=== PATIENT | female | born 1985 | race Caucasian/White ===

== ENCOUNTER → 2019-11-07 13:38 | Outpatient (BNVA) | payer SELFPAY | PROVIDERS: Visit Provider Nurse Practitioner Family | DX: J02.9 Acute pharyngitis, unspecified (principal); J03.90 Acute tonsillitis, unspecified | CPT/HCPCS: 87071; 87880 ==

== ENCOUNTER 2021-05-22 16:46 | Emergency (ER) | payer SELFPAY ==
[2021-05-22 17:26] VITALS: BP 143/92; PULSE 102; RESP 16; TEMP 36.8; O2SAT 95; BMI 25.0
[2021-05-22 20:28] LABS: Basophils # 0.1 10^3/uL (0.0-0.1); Basophils % 0.5 %; Eosinophils # 0.1 10^3/uL (0.0-0.8); Eosinophils % 0.7 %; Hematocrit 38.9 % (37.0-47.0); Hemoglobin 13.7 g/dL (11.5-15.3); Lymphocytes # 2.2 10^3/uL (0.8-4.8); Lymphocytes % 18.4 %; Mean Corpuscular HGB Conc 35.2 g/dL (30.0-36.0); Mean Corpuscular Hemoglobin 33.7 pg (28.0-34.0); Mean Corpuscular Volume 95.6 fl (81-99); Mean Platelet Volume 10.4 fL (7.4-10.4); Monocytes # 0.8 10^3/uL (0.2-0.9); Monocytes % 6.3 %; Neutrophils # 8.87 10^3/uL (1.8-7.7); Neutrophils % 73.4 %; Nucleated Red Blood Cells % 0 %; Platelet Count 308 10^3/cmm (130-400); Red Blood Count 4.07 10^6/uL (4.1-5.3); Red Cell Distribution Width 11.9 % (12.1-15.1); White Blood Count 12.1 10^3/uL (4.0-10.0)
--- NOTE | 2021-05-22 20:35 | USR_ITS ---
PROCEDURE INFORMATION: Exam: US Nonobstetric Pelvis; Complete Exam date and time: 05/22/2021 8:35 PM Age: 35 years old Clinical indication: Abdominal pain and pelvic pain; Left lower quadrant; Prior surgery; Surgery date: 6+ months; Surgery type: Leep; Additional info: Left abd pain TECHNIQUE: Imaging protocol: Transabdominal pelvic nonobstetric ultrasound. Complete exam. Real time ultrasound with image documentation. COMPARISON: CT abdomen pelvis w con* [id number] 05/22/2021 9:04 PM FINDINGS: Uterus: Two possible uterine fibroids seen measuring up to 12 mm on the cross sectional views of the uterus, series 1 image 57. Right ovary/adnexa: Ovary is normal. No mass. Normal blood flow. Left ovary/adnexa: Ovary is normal. No mass. Normal blood flow. Intraperitoneal space: No intraperitoneal fluid. Urinary bladder: Normal. US/US pelvic with transvaginal IMPRESSION: Two possible uterine fibroids seen measuring up to 12 mm on the cross sectional views of the uterus, series 1 image 57. Ovaries appear within normal limits with color blood flow. Radiation Dose CTDIVOL = (mGy): DLP = (mGy-cm)
[2021-05-22 20:42] LABS: HCG, Serum Qual Negative (Negative)
--- NOTE | 2021-05-22 20:56 | CTR_ITS ---
PROCEDURE INFORMATION: Exam: CT Abdomen And Pelvis With Contrast Exam date and time: 05/22/2021 8:56 PM Age: 35 years old Clinical indication: Abdominal pain; Prior surgery; Surgery type: Iud; Patient HX: Left flank pain. ; Additional info: Rlq/flank pain, stone vs ovarian TECHNIQUE: Imaging protocol: Computed tomography of the abdomen and pelvis with contrast. Radiation optimization: All CT scans at this facility use at least one of these dose optimization techniques: automated exposure control; mA and/or kV adjustment per patient size (includes targeted exams where dose is matched to clinical indication); or iterative reconstruction. Contrast material: OMNI 300; Contrast volume: 95 ml; Contrast route: INTRAVENOUS (IV); COMPARISON: No relevant prior studies available. RADIATION DOSE METRICS: Total DLP (mGy-cm): 1246.7 FINDINGS: Liver: Hepatic steatosis. Gallbladder and bile ducts: Normal. No calcified stones. No ductal dilation. Pancreas: Normal. No ductal dilation. Spleen: Normal. No splenomegaly. Adrenal glands: Normal. No mass. Kidneys and ureters: Left distal ureter 5.8 mm calculus with mild hydronephrosis and hydroureter with some perinephric edema perhaps reflecting pyelonephritis. Bilateral nonobstructing renal calyceal stones. Stomach and bowel: Constipation. Appendix: No evidence of appendicitis. Intraperitoneal space: Unremarkable. No free air. No significant fluid collection. Vasculature: Unremarkable. No abdominal aortic aneurysm. Lymph nodes: Unremarkable. No enlarged lymph nodes. Urinary bladder: Unremarkable as visualized. Reproductive: IUD in the uterine cavity. Bones/joints: Unremarkable. No acute fracture. Soft tissues: Unremarkable. CT/CT abdomen pelvis w con* [id number] IMPRESSION: 1. Left distal ureter 5.8 mm calculus with mild hydronephrosis and hydroureter with some perinephric edema perhaps reflecting pyelonephritis. 2. Bilateral nonobstructing renal calyceal stones. 3. Constipation. 4. IUD in the uterine cavity. 5. Hepatic steatosis. Radiation Dose CTDIVOL = (mGy): DLP = 1246.7 (mGy-cm)
[2021-05-22 20:58] LABS: Alanine Aminotransferase 11 U/L (0-33); Albumin Level 4.3 g/dL (3.5-5.2); Alkaline Phosphatase 47 IU/L (35-105); Anion Gap 17.7 (5-19); Aspartate Amino Transferase 15 U/L (0-32); Blood Urea Nitrogen 9 mg/dL (6-20); Calcium 9.4 mg/dL (8.5-10.5); Carbon Dioxide 23 mmol/L (22-29); Chloride 103 mmol/L (98-107); Glomerular Filtration Rate 113.1 mL/min (90-130); Glucose 93 mg/dL (65-115); Osmolality Calculated 288 mOsm/kg (285-295); Potassium 3.7 mmol/L (3.5-5.1); Sodium 140 mmol/L (136-145); Total Bilirubin 0.2 mg/dL (0.15-1.2); Total Protein 7.3 g/dL (6.6-8.7)
[2021-05-22] MEDS: iohexol 300 mg/mL 100 mL Btl IV (21:08)
--- NOTE | 2021-05-22 21:10 | W.ED.ABDPA2 ---
HPI - Abdominal Pain General: Chief Complaint: Abdominal Pain Stated Complaint: Lower Abdominal Pain to back Time Seen by Provider: 05/22/21 20:32 History of Present Illness: HPI narrative: Patient is a 35-year-old female with no significant past medical history. She is here with complaints of flank and groin pain. States it became worse over the last 3 days. Started in her flank and moved to her groin. Is sharp aching waxes and wanes but is mostly there. She did not get any relief from a 10 mg hydrocodone last night but did get some with some ibuprofen this morning. She has had some blood in her urine as well as some spotting. She is due to start her period. She has a ParaGard IUD that she states she has been unable to feel. No recent trauma to her abdomen or pelvis. No fevers chills chest pain nausea vomiting diarrhea altered mental status or syncope. Review of Systems General: Reports: 10 or more systems reviewed and unremarkable except in HPI and below PFSH ED PFSH: Social History Smoking and tobacco status: current every day smoker Alcohol intake: never Physical Exam Const: COMMON NORMALS: no acute distress, average body habitus, patient oriented x3, no limitations, healthy appearing, alert and well nourished GENERAL APPEARANCE: cooperative; not comfortable HENMT: COMMON NORMALS: normocephalic and atraumatic HEAD & SCALP: normocephalic and atraumatic Resp: COMMON NORMALS: normal respiratory effort, No retractions and clear to auscultation bilaterally AUSCULTATION: clear to auscultation bilaterally Cardio: COMMON NORMALS: regular rate, regular rhythm and No murmurs present (Cardio) RATE: regular rate RHYTHM: regular rhythm GI: COMMON NORMALS: Normal to inspection, nondistended, normoactive bowel sounds present and Soft to palpation PALPATION: Yes Soft to palpation Extremity: COMMON NORMALS: normal to inspection, full ROM and no joint enlargement Neuro: COMMON NORMALS: patient oriented x3, CN's II-XII intact bilaterally, moves all extremities, no focal motor deficits and no sensory deficits noted SENSORIUM/ORIENTATION: Yes alert Psych: COMMON NORMALS: mental status grossly normal and Normal thought process present THOUGHT PROCESS: Normal thought process present Skin: COMMON NORMALS: no rashes or lesions noted GENERAL SKIN EXAM: no rashes or lesions noted Course ED course: Patient has a 5.8 mm nonobstructing stone on the left it seems to be the cause of her symptoms. Ultrasound not show any ovarian torsion or cyst. Good blood flow to the ovary and some small fibroids. Patient still does have some considerable pain. Did give her a dose of Toradol which seemed to help spoke to urologist project management consultant because the CT showed some signs of possible stranding do not see any other signs of infection on her other than a mildly elevated white count still waiting for her urine. We will give her dose of hydrocodone now wait for her urine to see if there is any concomitant infection to treat if we can get her pain under control will discharge her. Pain does not have patient does not have any signs of infection in her urine no leukoesterase or nitrites. Bacteria seems to be a contaminant send her home with medication follow-up with urology instructions on when to return. Assuming that her pain is better controlled with the hydrocodone that we will discharge her. Vital Signs: Vital signs: Vital Signs Temperature 98.2 F 05/22/21 17:26 Pulse Rate 102 H 05/22/21 17:26 Respiratory Rate 16 05/22/21 17:26 Blood Pressure 143/92 05/22/21 17:26 Pulse Oximetry 95 05/22/21 17:26 MDM - Abdominal Pain MDM Narrative: Medical decision making narrative: Differential includes ovarian torsion, ovarian cyst, kidney stone, infection. Other than mildly hypertensive vital signs are normal she is afebrile do not think there is anything infectious. Given the fact that she has had blood in her urine she is not sure whether she has been spotting or not would strongly suggest kidney stone. States she has had 1 in the past but feels differently. Ovarian torsion would think would be more spasmodic she will have blood in her urine. We will go to get a CT to look at her kidney. If not see any obvious pathology may still have to ultrasound her. Check basic labs on her as well as test. Toradol for pain control Lab Data: Labs: Lab Results 05/22/21 05/22/21 05/22/21 19:53 19:53 19:53 WBC 12.1 10^3/uL H 10 ^3/uL (4.0-10.0) RBC 4.07 10^6/uL L 10 ^6/uL (4.1-5.3) Hgb 13.7 g/dL g/dL (11.5-15.3) Hct 38.9 % % (37.0-47.0) MCV 95.6 fl fl (81-99) MCH 33.7 pg pg (28.0-34.0) MCHC 35.2 g/dL g/dL (30.0-36.0) RDW 11.9 % L % (12.1-15.1) Plt Count 308 10^3/cmm 10^3 /cmm (130-400) MPV 10.4 fL fL (7.4-10.4) Neut % (Auto) 73.4 % % Lymph % (Auto) 18.4 % % Brown % (Auto) 6.3 % % Eos % (Auto) 0.7 % % Baso % (Auto) 0.5 % % Neut # (Auto) 8.87 10^3/uL H 10 ^3/uL (1.8-7.7) Lymph # (Auto) 2.2 10^3/uL 10^3/ uL (0.8-4.8) Brown # (Auto) 0.8 10^3/uL 10^3/ uL (0.2-0.9) Eos # (Auto) 0.1 10^3/uL 10^3/ uL (0.0-0.8) Baso # (Auto) 0.1 10^3/uL 10^3/ uL (0.0-0.1) Nucleated RBC % (a uto) 0 % % Nucleated RBCs # 0.0 /100WBC /100W BC Sodium 140 mmol/L mmol/L (136-145) Potassium 3.7 mmol/L mmol/L (3.5-5.1) Chloride 103 mmol/L mmol/L (98-107) Carbon Dioxide 23 mmol/L mmol/L (22-29) Anion Gap 17.7 (5-19) BUN 9 mg/dL mg/dL (6-20) Creatinine 0.6 mg/dL mg/dL (0.5-0.9) GFR Calculation 113.1 mL/min mL/m in (90-130) Glucose 93 mg/dL mg/dL (65-115) Calculated Osmolal ity 288 mOsm/kg mOsm/ kg (285-295) Calcium 9.4 mg/dL mg/dL (8.5-10.5) Total Bilirubin 0.2 mg/dL mg/dL (0.15-1.2) AST 15 U/L U/L (0-32) ALT 11 U/L U/L (0-33) Alkaline Phosphata se 47 IU/L IU/L (35-105) Total Protein 7.3 g/dL g/dL (6.6-8.7) Albumin 4.3 g/dL g/dL (3.5-5.2) Globulin 3.0 g/dL g/dL (1.3-4.6) HCG, Qual Negative (Negative) Urine Color Urine Appearance Urine pH Ur Specific Gravit y Urine Protein Urine Glucose (UA) Urine Ketones Urine Blood Urine Nitrate Urine Bilirubin Urine Urobilinogen Ur Leukocyte Carla ase Urine RBC Urine WBC Ur Squamous Epith Cells Calcium Oxalate Cr ystal Amorphous Sediment Urine Bacteria 05/22/21 20:47 WBC RBC Hgb Hct MCV MCH MCHC RDW Plt Count MPV Neut % (Auto) Lymph % (Auto) Brown % (Auto) Eos % (Auto) Baso % (Auto) Neut # (Auto) Lymph # (Auto) Brown # (Auto) Eos # (Auto) Baso # (Auto) Nucleated RBC % (a uto) Nucleated RBCs # Sodium Potassium Chloride Carbon Dioxide Anion Gap BUN Creatinine GFR Calculation Glucose Calculated Osmolal ity Calcium Total Bilirubin AST ALT Alkaline Phosphata se Total Protein Albumin Globulin HCG, Qual Urine Color Yellow (Yellow) Urine Appearance Sl hazy (CLEAR) Urine pH 5 (5-7) Ur Specific Gravit y 1.025 (1.005-1.030) Urine Protein Trace (Negative) Urine Glucose (UA) Norm (Normal) Urine Ketones Negative (Negative) Urine Blood 3+ H (Negative) Urine Nitrate Negative (Negative) Urine Bilirubin Neg (Negative) Urine Urobilinogen Norm mg/dL mg/dL (Negative) Ur Leukocyte Carla ase Negative (Negative) Urine RBC >100 /hpf H /hpf (0-2) Urine WBC 5-10 /hpf H /hpf (0-5) Ur Squamous Epith Cells 25-40 /hpf H /hpf (0-5) Calcium Oxalate Cr ystal 0-4 /hpf H /hpf Amorphous Sediment Not Reportable Urine Bacteria 2+ /hpf H /hpf (NONE) Discharge Plan Discharge Patient Disposition: Home Clinical Impression: Calculus of kidney Condition: Stable Prescriptions: New hydrocodone-acetaminophen 7.5-325 mg tablet 1 tab PO Q6H Qty: 20 RF: 0 Zofran 4 mg tablet 4 mg PO Q8H 5 Days Qty: 15 RF: 0 Flomax 0.4 mg capsule 0.4 mg PO DAILY Qty: 3 RF: 0 Discharge Orders: Discharge ED (Routine); Ordered 05/22/21 Ordered By: Andrew Baxter Referrals: Nestor Scott MD [Physician] - 1-3 days (As needed if symptoms do not improve) Patient Instructions: Kidney Stones (ED), How to Strain Your Urine (ED) Activity Restrictions/Additional Instructions: Take medication as prescribed. Do not take any other Tylenol or medicines with opiates such as oxycodone or additional doses of hydrocodone. In the morning you may start taking naproxen 2 pills every 12 hours that should help her symptoms quite a bit. Use the hydrocodone as needed. Strain your urine to see if the stone passes. Return to the emergency department with pain not controlled with your home meds fever over 101.3 feeling very ill or unable to keep down food fluids or medicines or any change in altered mental status Coding Level of Care Code ED Commercial Maintenance Technician for Connie Woo Exam Comprehensive
[2021-05-22] MEDS: ketorolac 30 mg/mL INJ 15 MG IVP (21:27)
[2021-05-22 22:41] LABS: Add Urine Microscopic? YES; Bilirubin Urine Neg (Negative); Blood Urine 3+ (Negative); Glucose Urine UA Norm (Normal); Ketones Urine Negative (Negative); Leukocyte Esterase Urine Negative (Negative); Nitrate Urine Negative (Negative); Protein Urine Trace (Negative); Specific Gravity, Urine 1.025 (1.005-1.030); Urine Appearance SL Hazy (CLEAR); Urine Color Yellow (Yellow); Urobilinogen Urine Norm (Negative); pH Urine 5 (5-7)
[2021-05-22 22:46] LABS: Add Urine Culture? No; Bacteria Urine 2+ /hpf; Calcium Oxalate Crystals Urine 0-4 /hpf; RBC Urine >100 /hpf (0-2); Squamous Epithelial Cell Urine 25-40 /hpf (0-5)
[2021-05-22] MEDS: HYDROcodone-APAP 7.5-325 mg/15 mL UDC 7.5 ML PO (22:53)
[2021-05-22] MEDS: tamsulosin 0.4 mg Capsule PO (22:54)
[2021-05-22] MEDS: HYDROcodone-acetaminophen 7.5-325 mg Tablet 2 TAB PO (23:40)
[2021-05-22 23:56] VITALS: BP 127/105; PULSE 76; RESP 16; O2SAT 96
== END 2021-05-22 23:57 | disposition home or self-care (01) ==
PROVIDERS: Nurse Practitioner Family; Emergency Provider Family Medicine
DX: N20.0 Calculus of kidney (principal); F17.210 Nicotine dependence, cigarettes, uncomplicated
CPT/HCPCS: 74177; 76830; 76856; 80053; 81001; 84703; 85025; 93976; 96374; 99283; J1885; Q9967

== ENCOUNTER 2023-08-23 07:38 | Emergency (ER) | payer SELFPAY ==
[2023-08-23] VITALS (11 sets, daily range): BP systolic 113–130; BP diastolic 48–98; PULSE 86–100; RESP 16–18; TEMP 37.2; O2SAT 93–99; BMI 26.6
--- NOTE | 2023-08-23 07:44 | W.ED.NAVMDI ---
HPI - Nausea/Vomiting/Diarrhea General: Chief complaint: Nausea/Vomiting/Diarrhea Stated complaint: Resp Distress, Weakness Time Seen by Provider: 08/23/23 07:41 Source: patient Mode of arrival: EMS History of Present Illness: 38-year-old female presents emergency room via EMS with complaints of persistent nausea and vomiting with pain in her back and her left flank for the last 4 days. She has had a productive cough as well with some small spit flecks of blood in her sputum when she she attributes to sore throat symptoms. No dysuria urgency or frequency she is concerned with several of the [id number] medication she has taken that she precipitated a kidney stone in the last few days causing the left flank pain. She has had kidney stones in the past. She has noted a fever at home. She denies any dysuria urgency or frequency no hematemesis or coffee-ground emesis. She has not noted any diarrhea or black tarry stools or hematochezia. MD elicited complaint: nausea and vomiting Onset (ago): day(s) (4) Description of vomiting: food contents and watery Associated nausea: Yes Quality: cramping Exacerbating factors: none Relieving factors: none Associated symtoms: Reports chest pain and nausea; Denies anxiety, bloating, change in vision, cough, diaphoresis, decreased urine output, dizziness, dysuria, epistaxis, fatigue, fecal incontinence, fevers/chills, headache(s), anorexia, malaise, myalgias, numbness, palpitations, rash, short of breath, syncope, tenesmus, tinnitus or weakness Review of Systems Const: Denies: fever(s), chills, fatigue, malaise or diaphoresis Eyes: Denies: change in vision ENMT: Denies: tinnitus or epistaxis Card: Reports: chest pain; Denies: palpitations or syncope Resp: Reports: dyspnea and productive cough GI: Reports: abdominal pain, nausea and vomiting; Denies: bloating or fecal incontinence : Reports: flank pain (L); Denies: dysuria, urinary frequency or urinary urgency Musc: Reports: back pain; Denies: neck pain Skin/Breast: Denies: rash Neuro: Denies: headache(s) or dizziness Psych: Denies: anxiety PFSH ED PFSH: Social History (Reviewed 08/23/23 @ 07:45 by HIREN Weems Smoking and tobacco/nicotine status: current every day tobacco/nicotine user Alcohol intake: never Substance/Drug Use: current Physical Exam Const: GENERAL APPEARANCE: cooperative and comfortable ORIENTATION/CONSCIOUSNESS: Yes awake, Yes oriented to person, Yes oriented to place and Yes oriented to time HENMT: COMMON NORMALS: normocephalic, atraumatic and hearing grossly normal bilaterally HEAD & SCALP: normocephalic and atraumatic Resp: COMMON NORMALS: normal respiratory effort, No retractions, No use of accessory muscles and clear to auscultation bilaterally AUSCULTATION: clear to auscultation bilaterally Cardio: COMMON NORMALS: regular rate, regular rhythm and No murmurs present (Cardio) RATE: regular rate RHYTHM: regular rhythm GI: COMMON NORMALS: Soft to palpation and No hepatosplenomegaly present AUSCULTATION: Yes normoactive bowel sounds PALPATION: Yes Soft to palpation, No Tenderness to palpation present (GI), No Guarding due to palpation present (GI) and Yes No hepatosplenomegaly present Extremity: COMMON NORMALS: normal to inspection, capillary refill normal, no clubbing, cyanosis or edema, no calf tenderness and no pedal edema Neuro: SENSORIUM/ORIENTATION: Yes oriented to person, Yes oriented to place and Yes oriented to time Skin: COMMON NORMALS: no rashes or lesions noted GENERAL SKIN EXAM: no rashes or lesions noted Course Vital Signs: Vital signs: Vital Signs Temperature 99.0 F 08/23/23 07:39 Pulse Rate 89 08/23/23 12:26 Respiratory Rate 16 08/23/23 11:19 Blood Pressure 130/98 08/23/23 12:26 Pulse Oximetry 98 08/23/23 12:26 Oxygen Delivery Me thod Room Air 08/23/23 12:01 MDM - Nausea/Vomiting/Diarrhea Medical Decision Making Right nephrolithiasis. Pain controlled. Will discharge patient home on tamsulosin: Pain medications antiemetics as needed strain urine to make arrangements for follow-up with urology. Medical Records I reviewed the patient's medical records. Lab Data I reviewed the patient's lab results. 08/23/23 07:20 08/23/23 08:14 Radiology Impressions Chest X-Ray 08/23/23 07:50 IMPRESSION: No acute cardiopulmonary abnormality detected on AP portable chest radiograph. Laboratory Results WBC 6.22 10^3/uL (3.29-11.43) 08/23/23 07:20 RBC 5.27 10^6/uL (3.85-5.65) 08/23/23 07:20 Hgb 17.30 g/dL (11.27-16.99) H 08/23/23 07:20 Hct 50.0 % (36-47) H 08/23/23 07:20 MCV 94.9 fl (85-98) 08/23/23 07:20 MCH 32.8 pg (27-33) 08/23/23 07:20 MCHC 34.6 g/dL (30-55) 08/23/23 07:20 RDW 12.0 % (12.1-15.1) L 08/23/23 07:20 Plt Count 269 10^3/cmm (157-399) 08/23/23 07:20 MPV 11.5 fL (7.4-10.4) H 08/23/23 07:20 Neut % (Auto) 70.0 % 08/23/23 07:20 Lymph % (Auto) 21.7 % 08/23/23 07:20 Izard % (Auto) 7.2 % 08/23/23 07:20 Eos % (Auto) 0.0 % 08/23/23 07:20 Baso % (Auto) 0.6 % 08/23/23 07:20 Neut # (Auto) 4.35 10^3/uL (1.8-7.7) 08/23/23 07:20 Lymph # (Auto) 1.4 10^3/uL (0.8-4.8) 08/23/23 07:20 Izard # (Auto) 0.5 10^3/uL (0.2-0.9) 08/23/23 07:20 Eos # (Auto) 0.0 10^3/uL (0.0-0.8) 08/23/23 07:20 Baso # (Auto) 0.0 10^3/uL (0.0-0.1) 08/23/23 07:20 Nucleated RBC % (auto) 0 % 08/23/23 07:20 Nucleated RBCs # 0.0 /100WBC 08/23/23 07:20 Sodium 134 mmol/L (136-145) L 08/23/23 08:14 Potassium 3.1 mmol/L (3.5-5.1) L 08/23/23 08:14 Chloride 100 mmol/L (98-107) 08/23/23 08:14 Carbon Dioxide 20 mmol/L (22-29) L 08/23/23 08:14 Anion Gap 17.1 (5-19) 08/23/23 08:14 BUN 8 mg/dL (6-20) 08/23/23 08:14 Creatinine 0.6 mg/dL (0.5-0.9) 08/23/23 08:14 GFR Calculation 111.3 mL/min (90-130) 08/23/23 08:14 Glucose 127 mg/dL (65-115) H 08/23/23 08:14 Calculated Osmolality 278 mOsm/kg (285-295) L 08/23/23 08:14 Lactic Acid 1.2 mmol/L (0.5-2.2) 08/23/23 08:14 Calcium 9.3 mg/dL (8.5-10.5) 08/23/23 08:14 Total Bilirubin 0.3 mg/dL (0.15-1.2) 08/23/23 08:14 AST 23 U/L (0-32) 08/23/23 08:14 ALT 17 U/L (0-33) 08/23/23 08:14 Alkaline Phosphatase 58 U/L (35-105) 08/23/23 08:14 Total Protein 8.1 g/dL (6.6-8.7) 08/23/23 08:14 Albumin 4.2 g/dL (3.5-5.2) 08/23/23 08:14 Globulin 3.9 g/dL (1.3-4.6) 08/23/23 08:14 Lipase 20 U/L (13-60) 08/23/23 08:14 HCG, Qual Negative (Negative) 08/23/23 08:14 Urine Color Dark yellow (Yellow) 08/23/23 08:28 Urine Appearance Sl hazy (CLEAR) A 08/23/23 08:28 Urine pH 6 (5-7) 08/23/23 08:28 Ur Specific Grahn 1.020 (1.005-1.030) 08/23/23 08:28 Urine Protein 1+ (Negative) H 08/23/23 08:28 Urine Glucose (UA) Norm (Normal) 08/23/23 08:28 Urine Ketones 1+ (Negative) H 08/23/23 08:28 Urine Blood 2+ (Negative) H 08/23/23 08:28 Urine Nitrate Negative (Negative) 08/23/23 08:28 Urine Bilirubin Neg (Negative) 08/23/23 08:28 Urine Urobilinogen Norm mg/dL (Negative) 08/23/23 08:28 Ur Leukocyte Esterase 1+ (Negative) H 08/23/23 08:28 Urine RBC 10-15 /hpf (0-2) H 08/23/23 08:28 Urine WBC 0-4 /hpf (0-5) H 08/23/23 08:28 Ur Squamous Epith Cells 0-4 /hpf (0-5) H 08/23/23 08:28 Amorphous Sediment Not Reportable 08/23/23 08:28 Urine Bacteria Trace /hpf (NONE) 08/23/23 08:28 Urine Mucus 1+ /hpf 08/23/23 08:28 Coronavirus 229E (PCR) Not detected (NOT DETECT) 08/23/23 08:20 Influenza A (H1) PCR Not detected (NOT DETECT) 08/23/23 10:34 Influ A (H1/09) PCR Not detected (NOT DETECT) 08/23/23 10:34 Influenza A (H3) PCR Detected (NOT DETECT) A 08/23/23 10:34 Influenza Type A Ag positive (Negative) H 08/23/23 08:20 Influenza Type A (PCR) Detected (NOT DETECT) A 08/23/23 10:34 Influenza Type B Ag negative (Negative) 08/23/23 08:20 Influenza Type B (PCR) Not detected (NOT DETECT) 08/23/23 10:34 SARS-CoV-2 (PCR) Not detected (NOT DETECT) 08/23/23 08:20 All radiology interpretation(s) finalized by discharge Discharge Plan Discharge Patient Disposition: Home Clinical Impression: Left nephrolithiasis, Influenza A Condition: Stable Prescriptions: New Percocet 5-325 mg tablet 1 tab PO Q4H PRN (Reason: pain) Qty: 20 0RF tamsulosin 0.4 mg capsule 0.4 mg PO BID Qty: 30 0RF promethazine 25 mg tablet 25 mg PO Q6H PRN (Reason: nausea and vomiting) Qty: 20 0RF No Action hydrocodone-acetaminophen 7.5-325 mg tablet 1 tab PO Q6H Qty: 20 0RF Flomax 0.4 mg capsule 0.4 mg PO DAILY Qty: 3 0RF Discharge Orders: Discharge ED (Routine); Ordered 08/23/23 Ordered By: Tim Crockett Discharge Diet: Usual diet Discharge Activity: Increase activity as tolerated Patient Instructions: Opioid Safety, Pain Management Activity Restrictions/Additional Instructions: Thank you for choosing [facility] for your healthcare needs today. Please realize this is an emergency room and that we are providing you with a medical screening exam and this may not be complete and all inclusive of all the testing and or work up that you may need to determine your ailment or severity of your illness. It is very important that you follow up as instructed or that you return to the Emergency Department should you have concerns or if your condition changes or worsens in any way. You were seen today for respiratory symptoms and flank pain. You do have influenza A you are outside the window for antivirals recommend just supportive care at this time for the the flulike symptoms. Additionally you have a left kidney stone. Recommend follow-up with urology as soon as you are able if pain is not controlled return to the emergency room. Coding Level of Care Code ED Roaster Operator for Connie Woo
--- NOTE | 2023-08-23 07:50 | XRR_ITS ---
PROCEDURE INFORMATION: Exam: XR Chest Exam date and time: 08/23/2023 7:54 AM Age: 38 years old Clinical indication: Cough and dyspnea; Additional info: Dyspnea/cough TECHNIQUE: Imaging protocol: Radiologic exam of the chest. Views: 1 view. COMPARISON: CT abdomen pelvis w con* [id number] 05/22/2021 9:04 PM FINDINGS: Lungs: No focal consolidation. Pleural spaces: No significant pleural fluid. No pneumothorax detected. Heart/Mediastinum: Heart size within normal range. No pulmonary vascular congestion. Bones/joints: No obvious acute abnormality. XR/XR chest 1V portable [id number] IMPRESSION: No acute cardiopulmonary abnormality detected on AP portable chest radiograph.
--- NOTE | 2023-08-23 07:53 | ECG_ITS ---
[facility] Test Date: 2023-08-23 Pat Name: Domonique Walker Department: Room: Gender: Female Helpdesk Technician: : 1985 Requested By: Tim Ya Order Number: [id number] Osbaldo MD: Bakari Garg M.D. Measurements Intervals [place] Rate: 84 P: 11 ID: [id number] QRS: -14 QRSD: 100 T: 58 QT: 361 QTc: 429 Interpretive Statements SINUS RHYTHM No previous ECG available for comparison Electronically Signed On 08-23-2023 9:44:13 PNEUMATIC DEICER INSPECTOR by Bakari Garg M.D. [id number]
[2023-08-23 07:55] LABS: Basophils % 0.6 %; Lymphocytes # 1.4 10^3/uL (0.8-4.8); Lymphocytes % 21.7 %; Mean Corpuscular HGB Conc 34.6 g/dL (30-55); Mean Corpuscular Hemoglobin 32.8 pg (27-33); Mean Corpuscular Volume 94.9 fl (85-98); Mean Platelet Volume 11.5 fL (7.4-10.4); Monocytes # 0.5 10^3/uL (0.2-0.9); Monocytes % 7.2 %; Neutrophils # 4.35 10^3/uL (1.8-7.7); Nucleated Red Blood Cells % 0 %; Platelet Count 269 10^3/cmm (157-399); Red Blood Count 5.27 10^6/uL (3.85-5.65); White Blood Count 6.22 10^3/uL (3.29-11.43)
[2023-08-23] MEDS: sodium chloride 0.9% 1,000 ML 999 ML IV (08:02)
[2023-08-23 08:45] LABS: Lactic Sepsis W/Reflex 1.2 mmol/L (0.5-2.2)
[2023-08-23 08:47] LABS: Alanine Aminotransferase 17 U/L (0-33); Albumin Level 4.2 g/dL (3.5-5.2); Alkaline Phosphatase 58 U/L (35-105); Anion Gap 17.1 (5-19); Aspartate Amino Transferase 23 U/L (0-32); Blood Urea Nitrogen 8 mg/dL (6-20); Calcium 9.3 mg/dL (8.5-10.5); Carbon Dioxide 20 mmol/L (22-29); Chloride 100 mmol/L (98-107); Globulin 3.9 g/dL (1.3-4.6); Glomerular Filtration Rate 111.3 mL/min (90-130); Glucose 127 mg/dL (65-115); Lipase 20 U/L (13-60); Osmolality Calculated 278 mOsm/kg (285-295); Potassium 3.1 mmol/L (3.5-5.1); Sodium 134 mmol/L (136-145); Total Bilirubin 0.3 mg/dL (0.15-1.2); Total Protein 8.1 g/dL (6.6-8.7)
[2023-08-23 08:49] LABS: HCG, Serum Qual Negative (Negative)
[2023-08-23 08:51] LABS: Add Urine Microscopic? YES; Bilirubin Urine Neg (Negative); Blood Urine 2+ (Negative); Glucose Urine UA Norm (Normal); Ketones Urine 1+ (Negative); Leukocyte Esterase Urine 1+ (Negative); Nitrate Urine Negative (Negative); Protein Urine 1+ (Negative); Urine Appearance SL Hazy (CLEAR); Urine Color Dark Yellow (Yellow); Urobilinogen Urine Norm (Negative); pH Urine 6 (5-7)
[2023-08-23 09:01] LABS: Bacteria Urine TRACE /hpf; Mucus Urine 1+ /hpf; Squamous Epithelial Cell Urine 0-4 /hpf (0-5); WBC Urine 0-4 /hpf (0-5)
[2023-08-23 09:02] LABS: Add Urine Culture? Yes
[2023-08-23 09:02] LABS: Influenza A by IFA positive (Negative); Influenza B by IFA negative (Negative)
--- NOTE | 2023-08-23 09:06 | CT_ITS ---
WS: [id number] CT ABDOMEN PELVIS TECHNIQUE: Noncontrast CT of the abdomen and pelvis with coronal and sagittal reformatted images. CLINICAL INFORMATION: flank pain COMPARISON: CT 2020 DLP: 622.[address] scans at [facility] use at least one of these dose optimization techniques: automated e xposure control; mA and/or kV adjustment per patient size (includes targeted exams where dose is matc hed to clinical indication); or iterative reconstruction. FINDINGS: Advanced RIGHT hydronephrosis with RIGHT ureterectasis extending into the pelvis. Obstructing distal RIGHT ureteral calculus measuring 6.7 mm x 12.4 mm transverse by craniocaudal. No obstructing LEFT renal or ureteral calculi. A few pelvic phleboliths. No hydronephrosis in the LEF T kidney. Tiny nonobstructing LEFT calyceal tip calculi. IUD in place. Lung bases are well aerated. Normal noncontrast liver. Normal noncontrast gallbladder. Normal GE junction. Noncontrast spleen is normal. Adrenal glands are normal. Normal caliber abdominal aorta. Normal appendix in the RIGHT lower quadrant. Fat-containing umbilical hernia. IMPRESSION: 1. Advanced RIGHT hydronephrosis with obstructing distal RIGHT ureteral calculus proximal to the UVJ measuring 6.7 x 12.4 mm transverse by craniocaudal. 2. No obstructing LEFT renal or ureteral calculi. Notified Tim Crockett DO at 08/23/2023 10:04 AM.
[2023-08-23] MEDS: morphine 4 mg/mL SDV 1 mL IVP (09:57)
[2023-08-23 10:29] LABS: Adenovirus Not Detected (NOT DETECT); Chlamydia Pneumoniae Not Detected (NOT DETECT); Coronavirus 229E,HKU1,NL63,OC4 Not Detected (NOT DETECT); Human Metapneumovirus Not Detected (NOT DETECT); Human Rhinovirus/Enterovirus Not Detected (NOT DETECT); Influenza A Detected (NOT DETECT); Influenza A H1 Not Detected (NOT DETECT); Influenza A H1-2009 Not Detected (NOT DETECT); Influenza A H3 Detected (NOT DETECT); Influenza B Not Detected (NOT DETECT); Mycoplasma Pneumoniae Not Detected (NOT DETECT); Parainfluenza Virus Type 1 Not Detected (NOT DETECT); Parainfluenza Virus Type 2 Not Detected (NOT DETECT); Parainfluenza Virus Type 3 Not Detected (NOT DETECT); Parainfluenza Virus Type 4 Not Detected (NOT DETECT); Respiratory Syncytial Virus A Not Detected (NOT DETECT); Respiratory Syncytial Virus B Not Detected (NOT DETECT); SARS-COV-2 Not Detected (NOT DETECT)
[2023-08-23 10:35] LABS: Influenza A Detected (NOT DETECT); Influenza A H1 Not Detected (NOT DETECT); Influenza A H1-2009 Not Detected (NOT DETECT); Influenza A H3 Detected (NOT DETECT); Influenza B Not Detected (NOT DETECT); Results from Genmark
[2023-08-23] MEDS: HYDROmorphone 1 mg/mL INJ 1 mL IVP (11:10)
--- NOTE | 2023-08-26 11:03 | DCPLANNER ---
I attempted to call patient on 08/25/23 at 0846am with no answer at phone number [phone]. I am trying to find out where patient would like urology referral for left ureterolithiasis. Options for urology is [facility] in [facility], [place], [facility] in [place], or [facility] in [place]. I will not send referral anywhere until I receive a call back from patient to see where she would like referral sent.
--- NOTE | 2023-08-26 11:05 | DCPLANNER ---
I attempted to call patient again on 08/26/23 at 1106am. I called phone number [phone]. Still no answer and I did leave a voicemail. I am needing to find out where patient would like urology referral sent.
== END 2023-08-23 12:29 | disposition home or self-care (01) ==
PROVIDERS: Emergency Provider Family Medicine
DX: N20.0 Calculus of kidney (principal); J10.1 Influenza due to other identified influenza virus with other respiratory manifestations; Z11.52 Encounter for screening for COVID-19; Z72.0 Tobacco use
CPT/HCPCS: 36415; 71045; 74176; 80053; 81001; 83605; 83690; 84703; 85025; 87086; 87631; 87635; 87804; 93005; 96374; 96375; 99285; J1170; J2270; J7030

== ENCOUNTER 2023-09-02 03:36 | Emergency (ER) | payer SELFPAY ==
[2023-09-02] VITALS (12 sets, daily range): BP systolic 101–145; BP diastolic 66–93; PULSE 67–97; RESP 16–18; TEMP 36.3–36.8; O2SAT 92–95; BMI 26.2
--- NOTE | 2023-09-02 04:12 | W.ED.ABDPA2 ---
Documented by User: Lowell Dodge DO 09/02/23 04:16 HPI - Abdominal Pain General: Chief Complaint: Abdominal Pain Stated Complaint: right flank pain Time Seen by Provider: 09/02/23 04:06 History of Present Illness: Presents to the ER with complaints of right-sided flank pain and radiating down to her groin. Patient does have a long history of kidney stones. Patient was just seen here approximately week ago for kidney stones. She says that there was one her left side and she may have passed them but now this is on her right side. Patient denies any fever or chills but does states she has nausea vomiting with the pain hits. The pain is sharp and stabbing in nature. Patient says she has been taking her pain medicine and nausea medicine as directed but is not enough to help. She says she does have an appointment coming up with urologist but not for another month. Upon chart review on 08/23/2023 CT scan showed advanced right sided hydronephrosis with approximately 6.7 x 12.4 mm stone obstructing her distal right ureter, there were no stones seen on the left side Related Data: Date of Last Menstrual Period: 08/12/23 Review of Systems General: Reports: 10 or more systems reviewed and unremarkable except in HPI and below PFSH ED PFSH: Social History Smoking and tobacco/nicotine status: current every day tobacco/nicotine user Alcohol intake: never Substance/Drug Use: current Female Reproductive History: Date of last menstrual period: 08/12/23 Physical Exam Const: COMMON NORMALS: no acute distress, average body habitus, patient oriented x3, no limitations, healthy appearing, alert and well nourished Neck/C-Spine: COMMON NORMALS: no JVD Chest: COMMONS NORMALS: normal inspection of the chest and normal palpation of entire chest wall Resp: COMMON NORMALS: normal respiratory effort, No retractions, No use of accessory muscles and clear to auscultation bilaterally AUSCULTATION: clear to auscultation bilaterally Cardio: COMMON NORMALS: no JVD, regular rate, regular rhythm, S1 normal heart sound present, S2 normal heart sound present, No gallops present (Cardio), No clicks present (Cardio), No murmurs present (Cardio) and No rub (Cardio) RATE: regular rate RHYTHM: regular rhythm HEART SOUNDS: S1 normal heart sound present and S2 normal heart sound present GI: COMMON NORMALS: Normal to inspection, nondistended, normoactive bowel sounds present, Soft to palpation and No hepatosplenomegaly present; negative for non-tender (Tender with palpation over right lower flank right lower quadrant abdomen) PALPATION: Yes Soft to palpation and Yes No hepatosplenomegaly present Neuro: COMMON NORMALS: patient oriented x3 SENSORIUM/ORIENTATION: Yes alert Course Vital Signs: Vital signs: Vital Signs Temperature 97.4 F L 09/02/23 03:57 Pulse Rate 85 09/02/23 07:20 Respiratory Rate 16 09/02/23 07:20 Blood Pressure 120/76 09/02/23 07:20 Pulse Oximetry 93 09/02/23 07:20 Oxygen Delivery Me thod Room Air 09/02/23 07:20 MDM - Abdominal Pain Differential Diagnosis Likely abdominal pain and calculus of kidney; Unlikely acute appendicitis, constipation, diverticulitis, endometriosis, gastroenteritis, pancreatitis or small bowel obstruction Medical Records I reviewed the patient's medical records. Lab Data I reviewed the patient's lab results. 09/02/23 04:10 09/02/23 04:10 Labs/Radiology: Radiology Impressions Abdomen/Pelvis CT 09/02/23 04:45 IMPRESSION: There has been no significant change. The distal right ureteral calculus with marked proximal obstructive changes are unchanged in appearance. Laboratory Results WBC 11.42 10^3/uL (3.29-11.43) 09/02/23 04:10 RBC 4.59 10^6/uL (3.85-5.65) 09/02/23 04:10 Hgb 14.80 g/dL (11.27-16.99) 09/02/23 04:10 Hct 42.1 % (36-47) 09/02/23 04:10 MCV 91.7 fl (85-98) 09/02/23 04:10 MCH 32.2 pg (27-33) 09/02/23 04:10 MCHC 35.2 g/dL (30-55) 09/02/23 04:10 RDW 11.8 % (12.1-15.1) L 09/02/23 04:10 Plt Count 314 10^3/cmm (157-399) 09/02/23 04:10 MPV 10.0 fL (7.4-10.4) 09/02/23 04:10 Neut % (Auto) 81.3 % 09/02/23 04:10 Lymph % (Auto) 12.6 % 09/02/23 04:10 [place] % (Auto) 5.3 % 09/02/23 04:10 Eos % (Auto) 0.2 % 09/02/23 04:10 Baso % (Auto) 0.3 % 09/02/23 04:10 Neut # (Auto) 9.29 10^3/uL (1.8-7.7) H 09/02/23 04:10 Lymph # (Auto) 1.4 10^3/uL (0.8-4.8) 09/02/23 04:10 [place] # (Auto) 0.6 10^3/uL (0.2-0.9) 09/02/23 04:10 Eos # (Auto) 0.0 10^3/uL (0.0-0.8) 09/02/23 04:10 Baso # (Auto) 0.0 10^3/uL (0.0-0.1) 09/02/23 04:10 Nucleated RBC % (auto) 0 % 09/02/23 04:10 Nucleated RBCs # 0.0 /100WBC 09/02/23 04:10 Sodium 134 mmol/L (136-145) L 09/02/23 04:10 Potassium 3.9 mmol/L (3.5-5.1) 09/02/23 04:10 Chloride 100 mmol/L (98-107) 09/02/23 04:10 Carbon Dioxide 19 mmol/L (22-29) L 09/02/23 04:10 Anion Gap 18.9 (5-19) 09/02/23 04:10 BUN 10 mg/dL (6-20) 09/02/23 04:10 Creatinine 0.9 mg/dL (0.5-0.9) 09/02/23 04:10 GFR Calculation 69.7 mL/min (90-130) L 09/02/23 04:10 Glucose 131 mg/dL (65-115) H 09/02/23 04:10 Calculated Osmolality 279 mOsm/kg (285-295) L 09/02/23 04:10 Calcium 8.9 mg/dL (8.5-10.5) 09/02/23 04:10 Total Bilirubin 0.5 mg/dL (0.15-1.2) 09/02/23 04:10 AST 22 U/L (0-32) 09/02/23 04:10 ALT 23 U/L (0-33) 09/02/23 04:10 Alkaline Phosphatase 52 U/L (35-105) 09/02/23 04:10 Total Protein 7.8 g/dL (6.6-8.7) 09/02/23 04:10 Albumin 4.2 g/dL (3.5-5.2) 09/02/23 04:10 Globulin 3.6 g/dL (1.3-4.6) 09/02/23 04:10 Urine Color Yellow (Yellow) 09/02/23 04:54 Urine Appearance Clear (CLEAR) 09/02/23 04:54 Urine pH 6 (5-7) 09/02/23 04:54 Ur Specific [place] 1.020 (1.005-1.030) 09/02/23 04:54 Urine Protein Neg (Negative) 09/02/23 04:54 Urine Glucose (UA) Norm (Normal) 09/02/23 04:54 Urine Ketones Negative (Negative) 09/02/23 04:54 Urine Blood Trace (Negative) H 09/02/23 04:54 Urine Nitrate Negative (Negative) 09/02/23 04:54 Urine Bilirubin Neg (Negative) 09/02/23 04:54 Urine Urobilinogen Neg mg/dL (Negative) 09/02/23 04:54 Ur Leukocyte Esterase Negative (Negative) 09/02/23 04:54 Urine RBC 0-4 /hpf (0-2) H 09/02/23 04:54 Urine WBC 0-4 /hpf (0-5) H 09/02/23 04:54 Ur Squamous Epith Cells 10-15 /hpf (0-5) H 09/02/23 04:54 Amorphous Sediment Not Reportable 09/02/23 04:54 Urine Bacteria Trace /hpf (NONE) 09/02/23 04:54 Discharge Plan Discharge Patient Disposition: Xfer Short-Term Hosp Clinical Impression: Calculus of kidney, Ureteral obstruction, right Condition: Stable Prescriptions: No Action tamsulosin 0.4 mg capsule 0.4 mg PO BID Qty: 30 0RF promethazine 25 mg tablet 25 mg PO Q6H PRN (Reason: nausea and vomiting) Qty: 20 0RF Sign Out Sign Out Data: Patient Sign Out occurred on 09/02/23 at 06:08. Patient's care was discussed, and care was transferred from Lowell Dodge DO to Tim Crockett DO. Coding Level of Care Code ED Buckle Frame Shaper for Chg Fwd Documented by User: Tim Crockett DO 09/02/23 08:17 HPI - Abdominal Pain General: Chief Complaint: Abdominal Pain Stated Complaint: right flank pain Time Seen by Provider: 09/02/23 04:06 PFSH ED PFSH: Social History Smoking and tobacco/nicotine status: current every day tobacco/nicotine user Alcohol intake: never Substance/Drug Use: current Course Vital Signs: Vital signs: Vital Signs Temperature 97.4 F L 09/02/23 03:57 Pulse Rate 85 09/02/23 07:20 Respiratory Rate 16 09/02/23 07:20 Blood Pressure 120/76 09/02/23 07:20 Pulse Oximetry 93 09/02/23 07:20 Oxygen Delivery Me thod Room Air 09/02/23 07:20 MDM - Abdominal Pain Medical Decision Making Care assumed at change of shift. 38-year-old female with obstructing ureteral stone that we seen 10 days ago since then she had no improvement as stone has a little worsening of her creatinine and has persistent hydronephrosis. Stone is quite large pain is more difficult to control today. Will transfer to [facility] in [place] for urologic services Drs. Chinchilla will be the attending on transfer. Lab Data 09/02/23 04:10 09/02/23 04:10 Labs/Radiology: Radiology Impressions Abdomen/Pelvis CT 09/02/23 04:45 IMPRESSION: There has been no significant change. The distal right ureteral calculus with marked proximal obstructive changes are unchanged in appearance. Laboratory Results WBC 11.42 10^3/uL (3.29-11.43) 09/02/23 04:10 RBC 4.59 10^6/uL (3.85-5.65) 09/02/23 04:10 Hgb 14.80 g/dL (11.27-16.99) 09/02/23 04:10 Hct 42.1 % (36-47) 09/02/23 04:10 MCV 91.7 fl (85-98) 09/02/23 04:10 MCH 32.2 pg (27-33) 09/02/23 04:10 MCHC 35.2 g/dL (30-55) 09/02/23 04:10 RDW 11.8 % (12.1-15.1) L 09/02/23 04:10 Plt Count 314 10^3/cmm (157-399) 09/02/23 04:10 MPV 10.0 fL (7.4-10.4) 09/02/23 04:10 Neut % (Auto) 81.3 % 09/02/23 04:10 Lymph % (Auto) 12.6 % 09/02/23 04:10 [place] % (Auto) 5.3 % 09/02/23 04:10 Eos % (Auto) 0.2 % 09/02/23 04:10 Baso % (Auto) 0.3 % 09/02/23 04:10 Neut # (Auto) 9.29 10^3/uL (1.8-7.7) H 09/02/23 04:10 Lymph # (Auto) 1.4 10^3/uL (0.8-4.8) 09/02/23 04:10 [place] # (Auto) 0.6 10^3/uL (0.2-0.9) 09/02/23 04:10 Eos # (Auto) 0.0 10^3/uL (0.0-0.8) 09/02/23 04:10 Baso # (Auto) 0.0 10^3/uL (0.0-0.1) 09/02/23 04:10 Nucleated RBC % (auto) 0 % 09/02/23 04:10 Nucleated RBCs # 0.0 /100WBC 09/02/23 04:10 Sodium 134 mmol/L (136-145) L 09/02/23 04:10 Potassium 3.9 mmol/L (3.5-5.1) 09/02/23 04:10 Chloride 100 mmol/L (98-107) 09/02/23 04:10 Carbon Dioxide 19 mmol/L (22-29) L 09/02/23 04:10 Anion Gap 18.9 (5-19) 09/02/23 04:10 BUN 10 mg/dL (6-20) 09/02/23 04:10 Creatinine 0.9 mg/dL (0.5-0.9) 09/02/23 04:10 GFR Calculation 69.7 mL/min (90-130) L 09/02/23 04:10 Glucose 131 mg/dL (65-115) H 09/02/23 04:10 Calculated Osmolality 279 mOsm/kg (285-295) L 09/02/23 04:10 Calcium 8.9 mg/dL (8.5-10.5) 09/02/23 04:10 Total Bilirubin 0.5 mg/dL (0.15-1.2) 09/02/23 04:10 AST 22 U/L (0-32) 09/02/23 04:10 ALT 23 U/L (0-33) 09/02/23 04:10 Alkaline Phosphatase 52 U/L (35-105) 09/02/23 04:10 Total Protein 7.8 g/dL (6.6-8.7) 09/02/23 04:10 Albumin 4.2 g/dL (3.5-5.2) 09/02/23 04:10 Globulin 3.6 g/dL (1.3-4.6) 09/02/23 04:10 Urine Color Yellow (Yellow) 09/02/23 04:54 Urine Appearance Clear (CLEAR) 09/02/23 04:54 Urine pH 6 (5-7) 09/02/23 04:54 Ur Specific [place] 1.020 (1.005-1.030) 09/02/23 04:54 Urine Protein Neg (Negative) 09/02/23 04:54 Urine Glucose (UA) Norm (Normal) 09/02/23 04:54 Urine Ketones Negative (Negative) 09/02/23 04:54 Urine Blood Trace (Negative) H 09/02/23 04:54 Urine Nitrate Negative (Negative) 09/02/23 04:54 Urine Bilirubin Neg (Negative) 09/02/23 04:54 Urine Urobilinogen Neg mg/dL (Negative) 09/02/23 04:54 Ur Leukocyte Esterase Negative (Negative) 09/02/23 04:54 Urine RBC 0-4 /hpf (0-2) H 09/02/23 04:54 Urine WBC 0-4 /hpf (0-5) H 09/02/23 04:54 Ur Squamous Epith Cells 10-15 /hpf (0-5) H 09/02/23 04:54 Amorphous Sediment Not Reportable 09/02/23 04:54 Urine Bacteria Trace /hpf (NONE) 09/02/23 04:54 All radiology interpretation(s) finalized by discharge Discharge Plan Discharge Patient Disposition: Xfer Short-Term Hosp Clinical Impression: Calculus of kidney, Ureteral obstruction, right Condition: Stable Prescriptions: No Action tamsulosin 0.4 mg capsule 0.4 mg PO BID Qty: 30 0RF promethazine 25 mg tablet 25 mg PO Q6H PRN (Reason: nausea and vomiting) Qty: 20 0RF Sign Out Sign Out Data: Patient Sign Out occurred on 09/02/23 at 06:08. Patient's care was discussed, and care was transferred from Lowell Dodge DO to Tim Crockett DO. Coding Level of Care Code ED Buckle Frame Shaper for Connie Woo
[2023-09-02 04:18] LABS: Basophils % 0.3 %; Eosinophils % 0.2 %; Hematocrit 42.1 % (36-47); Lymphocytes # 1.4 10^3/uL (0.8-4.8); Lymphocytes % 12.6 %; Mean Corpuscular HGB Conc 35.2 g/dL (30-55); Mean Corpuscular Hemoglobin 32.2 pg (27-33); Mean Corpuscular Volume 91.7 fl (85-98); Monocytes # 0.6 10^3/uL (0.2-0.9); Monocytes % 5.3 %; Neutrophils # 9.29 10^3/uL (1.8-7.7); Neutrophils % 81.3 %; Nucleated Red Blood Cells % 0 %; Platelet Count 314 10^3/cmm (157-399); Red Blood Count 4.59 10^6/uL (3.85-5.65); Red Cell Distribution Width 11.8 % (12.1-15.1); White Blood Count 11.42 10^3/uL (3.29-11.43)
[2023-09-02] MEDS: sodium chloride 0.9% 1,000 ML 999 ML IV (04:19)
[2023-09-02] MEDS: ondansetron 2 mg/ML SDV 2 mL 4 MG IVP (04:20)
[2023-09-02] MEDS: orphenadrine 30 mg/mL Inj 2 mL 60 MG IVP (04:20)
[2023-09-02] MEDS: ketorolac 30 mg/mL INJ IVP (04:20)
[2023-09-02 04:38] LABS: Alanine Aminotransferase 23 U/L (0-33); Albumin Level 4.2 g/dL (3.5-5.2); Alkaline Phosphatase 52 U/L (35-105); Anion Gap 18.9 (5-19); Aspartate Amino Transferase 22 U/L (0-32); Blood Urea Nitrogen 10 mg/dL (6-20); Calcium 8.9 mg/dL (8.5-10.5); Carbon Dioxide 19 mmol/L (22-29); Chloride 100 mmol/L (98-107); Creatinine Clr Calc Pharmacy 83.2893; Globulin 3.6 g/dL (1.3-4.6); Glomerular Filtration Rate 69.7 mL/min (90-130); Glucose 131 mg/dL (65-115); Osmolality Calculated 279 mOsm/kg (285-295); Potassium 3.9 mmol/L (3.5-5.1); Sodium 134 mmol/L (136-145); Total Bilirubin 0.5 mg/dL (0.15-1.2); Total Protein 7.8 g/dL (6.6-8.7)
--- NOTE | 2023-09-02 04:45 | CTR_ITS ---
PROCEDURE INFORMATION: Exam: CT Abdomen And Pelvis Without Contrast Exam date and time: 09/02/2023 4:56 AM Age: 38 years old Clinical indication: Abdominal pain; Flank; Patient HX: Patient says she was in last week and had the flu and a stone-she passed the stone Tuesday but now has pain on the right side; Additional info: Right ureteral stone, TECHNIQUE: Imaging protocol: Computed tomography of the abdomen and pelvis without contrast. Radiation optimization: All CT scans at this facility use at least one of these dose optimization techniques: automated exposure control; mA and/or kV adjustment per patient size (includes targeted exams where dose is matched to clinical indication); or iterative reconstruction. COMPARISON: CT kidney stone [id number] 08/23/2023 9:11 AM RADIATION DOSE METRICS: Total DLP (mGy-cm): 709 FINDINGS: Liver: Normal. No mass. Gallbladder and bile ducts: Normal. No calcified stones. No ductal dilation. Pancreas: Normal. No ductal dilation. Spleen: Normal. No splenomegaly. Adrenal glands: Normal. No mass. Kidneys and ureters: 7 x 12 mm distal right ureteral calculus with marked proximal ureteropelvocaliectasis is stable. Additional nonobstructing left renal calculi are stable. Stomach and bowel: Unremarkable. No obstruction. No mucosal thickening. Appendix: No evidence of appendicitis. Intraperitoneal space: Unremarkable. No free air. No significant fluid collection. Vasculature: Unremarkable. No abdominal aortic aneurysm. Lymph nodes: Unremarkable. No enlarged lymph nodes. Urinary bladder: Unremarkable as visualized. Reproductive: IUD within the endometrial cavity. Bones/joints: Unremarkable. No acute fracture. Soft tissues: Unremarkable. CT/CT kidney stone [id number] IMPRESSION: There has been no significant change. The distal right ureteral calculus with marked proximal obstructive changes are unchanged in appearance.
[2023-09-02] MEDS: HYDROmorphone 1 mg/mL INJ 1 mL 0.5 MG IVP ×2 (04:49→07:18)
[2023-09-02 05:06] LABS: Add Urine Culture? No; Add Urine Microscopic? YES; Bacteria Urine TRACE /hpf; Bilirubin Urine Neg (Negative); Blood Urine Trace (Negative); Glucose Urine UA Norm (Normal); Ketones Urine Negative (Negative); Leukocyte Esterase Urine Negative (Negative); Nitrate Urine Negative (Negative); Protein Urine Neg (Negative); RBC Urine 0-4 /hpf (0-2); Urine Appearance Clear (CLEAR); Urine Color Yellow (Yellow); Urobilinogen Urine Neg (Negative); WBC Urine 0-4 /hpf (0-5); pH Urine 6 (5-7)
[2023-09-02] MEDS: sodium chlor 0.9% + KCl 20 mEq 20 MEQ/1,000 ML BAG 125 MEQ IV (08:56)
[2023-09-02] MEDS: HYDROmorphone 1 mg/mL INJ 1 mL IVP (09:49)
== END 2023-09-02 13:00 | disposition short-term general hospital (02) ==
PROVIDERS: Emergency Medicine; Emergency Provider Family Medicine
DX: N20.1 Calculus of ureter (principal); Z72.0 Tobacco use
CPT/HCPCS: 74176; 80053; 81001; 85025; 96374; 96375; 96376; 99285; J1170; J1885; J2360; J2405; J3480; J7030

== ENCOUNTER 2024-02-13 03:01 | Emergency (ER) | payer SELFPAY ==
[2024-02-13] VITALS (19 sets, daily range): BP systolic 118–155; BP diastolic 75–104; PULSE 59–95; RESP 14–18; TEMP 36.7; O2SAT 92–98; BMI 28.6
[2024-02-13 03:20] LABS: Basophils # 0.1 10^3/uL (0.0-0.1); Basophils % 0.5 %; Eosinophils # 0.1 10^3/uL (0.0-0.8); Eosinophils % 0.6 %; Hematocrit 42.6 % (36-47); Lymphocytes % 18.4 %; Mean Corpuscular Hemoglobin 32.1 pg (27-33); Mean Corpuscular Volume 91.8 fl (85-98); Mean Platelet Volume 9.7 fL (7.4-10.4); Monocytes # 0.5 10^3/uL (0.2-0.9); Monocytes % 4.7 %; Neutrophils # 8.05 10^3/uL (1.8-7.7); Neutrophils % 75.3 %; Nucleated Red Blood Cells % 0 %; Platelet Count 330 10^3/cmm (157-399); Red Blood Count 4.64 10^6/uL (3.85-5.65); Red Cell Distribution Width 11.9 % (12.1-15.1); White Blood Count 10.68 10^3/uL (3.29-11.43)
[2024-02-13 03:26] LABS: Charge for UA Resulting for Rev
[2024-02-13 03:29] LABS: Bilirubin Urine Negative (Negative); Blood Urine Non-haemolysed trace (Negative); Glucose Urine UA Negative (Normal); Ketones Urine Negative (Negative); Leukocyte Esterase Urine Negative (Negative); Nitrate Urine Negative (Negative); Protein Urine Negative (Negative); Specific Gravity, Urine 1.029 (1.005-1.030); Urine Appearance Clear (CLEAR); Urine Color Yellow (Yellow); pH Urine 5.5 (5-7)
[2024-02-13 03:34] LABS: Bacteria Urine None Seen /hpf; Hyaline Casts Urine 0-4 /lpf; Squamous Epithelial Cell Urine 0-5 /hpf (0-5)
[2024-02-13 03:37] LABS: HCG, Serum Qual Negative (Negative)
[2024-02-13 03:41] LABS: Alanine Aminotransferase 9 U/L (0-33); Albumin Level 4.3 g/dL (3.5-5.2); Alkaline Phosphatase 64 U/L (35-105); Anion Gap 17.7 (5-19); Aspartate Amino Transferase 12 U/L (0-32); Blood Urea Nitrogen 8 mg/dL (6-20); C Reactive Protein 3.7 mg/L (0.0-4.9); Calcium 9.1 mg/dL (8.5-10.5); Carbon Dioxide 20 mmol/L (22-29); Chloride 104 mmol/L (98-107); Creatinine Clr Calc Pharmacy 97.4863; Globulin 3.6 g/dL (1.3-4.6); Glomerular Filtration Rate 79.9 mL/min (90-130); Glucose 112 mg/dL (65-115); Lipase 28 U/L (13-60); Osmolality Calculated 285 mOsm/kg (285-295); Potassium 3.7 mmol/L (3.5-5.1); Sodium 138 mmol/L (136-145); Total Bilirubin 0.2 mg/dL (0.15-1.2); Total Protein 7.9 g/dL (6.6-8.7)
--- NOTE | 2024-02-13 03:49 | CTR_ITS ---
PROCEDURE INFORMATION: Exam: CT Abdomen And Pelvis Without Contrast Exam date and time: 02/13/2024 4:13 AM Age: 38 years old Clinical indication: Abdominal pain; Right; Prior surgery; Surgery date: 6+ months; Surgery type: Iud; Patient HX: C/O RT flank pain x 3 days. History of non passable RT sided nephrolithiasis. ; Additional info: R flank pain TECHNIQUE: Imaging protocol: Computed tomography of the abdomen and pelvis without contrast. Radiation optimization: All CT scans at this facility use at least one of these dose optimization techniques: automated exposure control; mA and/or kV adjustment per patient size (includes targeted exams where dose is matched to clinical indication); or iterative reconstruction. COMPARISON: CT kidney stone [id number] 09/02/2023 4:56 AM RADIATION DOSE METRICS: Total DLP (mGy-cm): 646.62 FINDINGS: Lungs: Lung bases are clear as visualized. Liver: Normal. No mass. Gallbladder and biliary ducts: Normal. No calcified stones. No ductal dilation. Pancreas: Normal. No ductal dilation. Spleen: Normal. No splenomegaly. Adrenal glands: Normal. No mass. Kidneys and ureters: Small nonobstructing renal calculi are noted on the left. No hydronephrosis is noted on the left. There is severe hydronephrosis with hydroureter on the right extending to the distal right ureter. No definite stone is appreciated. Stomach and bowel: Unremarkable. No obstruction. No mucosal thickening. Appendix: No evidence of appendicitis. Intraperitoneal space: Unremarkable. No free air. No significant fluid collection. Vasculature: Unremarkable. No abdominal aortic aneurysm. Lymph nodes: Unremarkable. No enlarged lymph nodes. Urinary bladder: Unremarkable as visualized. Reproductive: There is an IUD within the uterus. No abnormalities are otherwise noted with regards to the reproductive organs. Bones/joints: Unremarkable. No acute fracture. Soft tissues: There is a small fat filled periumbilical hernia. CT/CT kidney stone [id number] IMPRESSION: 1. Severe hydronephrosis and hydroureter on the right worse on today's exam when compared to prior exam. No definite ureteral stone is appreciated. Findings may be related to a stricture or a mass involving the distal ureter. Recommend urologic referral for further appropriate workup. 2. Nephrolithiasis on the left.
--- NOTE | 2024-02-13 03:51 | ED_ITS ---
HPI - Abdominal Pain 2 General: Chief Complaint: Abdominal Pain Stated Complaint: Lower abd pain Time Seen by Provider: 02/13/24 03:20 History of Present Illness: 38-year-old female with a history of kid akhil stones. She presents with 3 days of right-sided flank pain, worse last night and this morning. She vomited once at home. No fever. She had been on her period, Related Data Home Medications Medication Instructions Recorded Confirmed No Known Home Medications 01/21/24 01/21/24 Allergies Allergy/AdvReac Type Severity Reaction Status Date / Time capsaicin Allergy ALINA-Swell Verified 01/21/24 11:28 Lip/Tongue/Throat PFSH ED 2 PFSH: Social History Smoking and tobacco/nicotine status: current every day tobacco/nicotine user (vape) Alcohol intake: never Substance/Drug Use: current Physical Exam 2 Const: COMMON NORMALS: no acute distress GENERAL APPEARANCE: cooperative and ill appearing (Mildly. In pain); not frail appearing HENMT: COMMON NORMALS: normocephalic, atraumatic and Normal external nose present HEAD & SCALP: normocephalic and atraumatic FACE & SINUS: normal facial exam and face symmetric NOSE: Normal external nose present Eye: COMMON NORMALS: Equal, round and reactive pupils present and EOMs intact bilaterally PUPIL: Yes Equal, round and reactive pupils present Neck/C-Spine: GENERAL: Yes trachea midline Chest: CHEST: Yes Symmetrical chest wall rise Resp: COMMON NORMALS: normal respiratory effort, No retractions, No use of accessory muscles and clear to auscultation bilaterally AUSCULTATION: clear to auscultation bilaterally Cardio: COMMON NORMALS: regular rate and regular rhythm RATE: regular rate RHYTHM: regular rhythm GI: COMMON NORMALS: Normal to inspection, nondistended, normoactive bowel sounds present : BLADDER/KIDNEY EXAM: Yes CVA tenderness on the right Back/Pelvis: GENERAL BACK: Yes CVA tenderness Extremity: COMMON NORMALS: no pedal edema Neuro: MATTY COMA SCALE: document GCS findings Matty coma scale eye opening: Spontaneous Matty coma scale verbal response: Orientated [place] coma scale motor response: Obey commands [place] coma scale total score: 15 S ENSORY EXAM: Yes extremities (intact) Psych: COMMON NORMALS: speech normal SPEECH: Yes normal speech Skin: COMMON NORMALS: no rashes or lesions noted GENERAL SKIN EXAM: no rashes or lesions noted Course 2 Vital Signs: Vital signs: Vital Signs Temperature 98.1 F 02/13/24 03:04 Pulse Rate 89 02/13/24 03:17 Respiratory Rate 16 02/13/24 04:23 Blood Pressure 135/92 02/13/24 03:17 Pulse Oximetry 97 02/13/24 03:17 Oxygen Delivery Me thod Room Air 02/13/24 03:17 MDM - Abdominal Pain Medical Decision Making Vital signs are stable. Pain is improved after IV morphine and Toradol here, although she still having significant pain. CBC is normal. Bicarbonate is 20. Creatinine is 0.8. CT scan shows severe hydronephrosis and hydroureter, up to 19 mm ureter, with no definite ureteral stone. Stricture or mass is in the differential. She had prior treatment at [facility]. We do not have urology services available here. We have clouded images to them, and have a call out to their urologist on-call to inquire about potential transfer given the severity of her hydronephrosis. Spoke with urology on-call at [facility]. They agree to consult on the patient. We are waiting hospitalist acceptance which is essentially assured given her need for urology intervention and they are agreement. Currently patient is stable. Lab Data 02/13/24 03:13 02/13/24 03:13 Labs/Radiology: Radiology Impressions Abdomen/Pelvis CT 02/13/24 03:49 IMPRESSION: 1. Severe hydronephrosis and hydroureter on the right worse on today's exam when compared to prior exam. No definite ureteral stone is appreciated. Findings may be related to a stricture or a mass involving the distal ureter. Recommend urologic referral for further appropriate workup. 2. Nephrolithiasis on the left. Laboratory Results WBC 10.68 10^3/uL (3.29-11.43) 02/13/24 03:13 RBC 4.64 10^6/uL (3.85-5.65) 02/13/24 03:13 Hgb 14.90 g/dL (11.27-16.99) 02/13/24 03:13 Hct 42.6 % (36-47) 02/13/24 03:13 MCV 91.8 fl (85-98) 02/13/24 03:13 MCH 32.1 pg (27-33) 02/13/24 03:13 MCHC 35.0 g/dL (30-55) 02/13/24 03:13 RDW 11.9 % (12.1-15.1) L 02/13/24 03:13 Plt Count 330 10^3/cmm (157-399) 02/13/24 03:13 MPV 9.7 fL (7.4-10.4) 02/13/24 03:13 Neut % (Auto) 75.3 % 02/13/24 03:13 Lymph % (Auto) 18.4 % 02/13/24 03:13 [place] % (Auto) 4.7 % 02/13/24 03:13 Eos % (Auto) 0.6 % 02/13/24 03:13 Baso % (Auto) 0.5 % 02/13/24 03:13 Neut # (Auto) 8.05 10^3/uL (1.8-7.7) H 02/13/24 03:13 Lymph # (Auto) 2.0 10^3/uL (0.8-4.8) 02/13/24 03:13 [place] # (Auto) 0.5 10^3/uL (0.2-0.9) 02/13/24 03:13 Eos # (Auto) 0.1 10^3/uL (0.0-0.8) 02/13/24 03:13 Baso # (Auto) 0.1 10^3/uL (0.0-0.1) 02/13/24 03:13 Nucleated RBC % (auto) 0 % 02/13/24 03:13 Nucleated RBCs # 0.0 /100WBC 02/13/24 03:13 Sodium 138 mmol/L (136-145) 02/13/24 03:13 Potassium 3.7 mmol/L (3.5-5.1) 02/13/24 03:13 Chloride 104 mmol/L (98-107) 02/13/24 03:13 Carbon Dioxide 20 mmol/L (22-29) L 02/13/24 03:13 Anion Gap 17.7 (5-19) 02/13/24 03:13 BUN 8 mg/dL (6-20) 02/13/24 03:13 Creatinine 0.8 mg/dL (0.5-0.9) 02/13/24 03:13 GFR Calculation 79.9 mL/min (90-130) L 02/13/24 03:13 Glucose 112 mg/dL (65-115) 02/13/24 03:13 Calculated Osmolality 285 mOsm/kg (285-295) 02/13/24 03:13 Calcium 9.1 mg/dL (8.5-10.5) 02/13/24 03:13 Total Bilirubin 0.2 mg/dL (0.15-1.2) 02/13/24 03:13 AST 12 U/L (0-32) 02/13/24 03:13 ALT 9 U/L (0-33) 02/13/24 03:13 Alkaline Phosphatase 64 U/L (35-105) 02/13/24 03:13 C-Reactive Protein 3.7 mg/L (0.0-4.9) 02/13/24 03:13 Total Protein 7.9 g/dL (6.6-8.7) 02/13/24 03:13 Albumin 4.3 g/dL (3.5-5.2) 02/13/24 03:13 Globulin 3.6 g/dL (1.3-4.6) 02/13/24 03:13 Lipase 28 U/L (13-60) 02/13/24 03:13 HCG, Qual Negative (Negative) 02/13/24 03:13 Urine Color Yellow (Yellow) 02/13/24 03:13 Urine Appearance Clear (CLEAR) 02/13/24 03:13 Urine pH 5.5 (5-7) 02/13/24 03:13 Ur Specific [place] 1.029 (1.005-1.030) 02/13/24 03:13 Urine Protein Negative (Negative) 02/13/24 03:13 Urine Glucose (UA) Negative (Normal) 02/13/24 03:13 Urine Ketones Negative (Negative) 02/13/24 03:13 Urine Blood Non-haemolysed trace (Negative) 02/13/24 03:13 Urine Nitrate Negative (Negative) 02/13/24 03:13 Urine Bilirubin Negative (Negative) 02/13/24 03:13 Urine Urobilinogen 1.0 mg/dL (Negative) 02/13/24 03:13 Ur Leukocyte Esterase Negative (Negative) 02/13/24 03:13 Urine RBC 3-5 /hpf (0-2) 02/13/24 03:13 Urine WBC 6-10 /hpf (0-5) 02/13/24 03:13 Ur Squamous Epith Cells 0-5 /hpf (0-5) 02/13/24 03:13 Amorphous Sediment Not Reportable 02/13/24 03:13 Urine Bacteria None seen /hpf (NONE) 02/13/24 03:13 Hyaline Casts 0-4 /lpf H 02/13/24 03:13 All radiology interpretation(s) finalized by discharge Discharge Plan Discharge Patient Disposition: Xfer Short-Term Hosp Clinical Impression: Ureterolithiasis Condition: Stable Coding Level of Care Code ED [employer] Plant Manager for Connie Woo
[2024-02-13] MEDS: ondansetron 2 mg/ML SDV 2 mL 4 MG IVP ×2 (04:19→17:50)
[2024-02-13] MEDS: ketorolac 30 mg/mL INJ IVP (04:19)
[2024-02-13] MEDS: sodium chloride 0.9% 1,000 ML 999 ML IV (04:20)
[2024-02-13] MEDS: morphine 4 mg/mL SDV 1 mL IVP ×5 (04:23→17:50)
[2024-02-13] MEDS: lactated ringers 1,000 ML 100 ML IV ×2 (07:05→14:51)
[2024-02-13] MEDS: HYDROmorphone 1 mg/mL INJ 1 mL IVP (22:09)
== END 2024-02-13 22:34 | disposition short-term general hospital (02) ==
PROVIDERS: Emergency Medicine; Emergency Provider Family Medicine
DX: N13.2 Hydronephrosis with renal and ureteral calculous obstruction (principal); F17.290 Nicotine dependence, other tobacco product, uncomplicated
CPT/HCPCS: 74176; 80053; 81003; 81015; 83690; 84703; 85025; 86140; 96361; 96374; 96375; 96376; 99285; J1170; J1885; J2270; J2405; J7030; J7120

== ENCOUNTER 2024-02-29 04:20 | Emergency (ER) | payer OTHER, SELFPAY ==
[2024-02-29 04:26] VITALS: BP 146/76; PULSE 101; RESP 18; TEMP 36.6; O2SAT 93; BMI 27.9
[2024-02-29] MEDS: ondansetron 4 MG Tablet PO (04:55)
[2024-02-29 05:01] VITALS: RESP 18
[2024-02-29] MEDS: morphine 4 mg/mL SDV 1 mL 10 MG IM (05:01)
[2024-02-29 05:12] LABS: Charge for UA Resulting for Rev
[2024-02-29 05:15] LABS: Bilirubin Urine Negative (Negative); Blood Urine 3+ (Negative); Glucose Urine UA Negative (Normal); Ketones Urine Negative (Negative); Leukocyte Esterase Urine 1+ (Negative); Nitrate Urine Negative (Negative); Protein Urine 2+ (Negative); Specific Gravity, Urine 1.017 (1.005-1.030); Urine Appearance Cloudy (CLEAR)
[2024-02-29 05:20] LABS: Bacteria Urine None Seen /hpf; RBC Urine >100 /hpf (0-2); Squamous Epithelial Cell Urine 0-5 /hpf (0-5)
--- NOTE | 2024-02-29 05:20 | W.ED.FEMALGU ---
HPI - Female Genitourinary General: Chief complaint: Urogenital-Female Stated complaint: abd pain Time Seen by Provider: 02/29/24 04:31 History of Present Illness: This patient is a 38-year-old white female who presents to the emergency department complaining of right flank pain rating down the right lower quadrant. This became severe this morning. Patient has been having pain on this side for some time. She recently had a stent placed in the right ureter by Dr. Girard at [facility]. She is having quite a bit of burning with urination as well. No fever. Associated symptoms: Reports abdominal pain Date of Last Menstrual Period: 02/15/24 Related Data Home Medications Medication Instructions Recorded Confirmed hydrocodone 5 mg-acetaminophen 325 1 tab PO Q6H PRN 02/20/24 02/20/24 mg tablet tamsulosin 0.4 mg capsule 0.4 mg PO DAILY 02/20/24 02/20/24 Previous Rx's Medication Instructions Recorded oxycodone-acetaminophen 5 mg-325 1 tab PO Q6H PRN pain #30 tabs 02/29/24 mg tablet (Percocet) Allergies Allergy/AdvReac Type Severity Reaction Status Date / Time capsaicin Allergy ALGY-Swell Verified 02/29/24 04:32 Lip/Tongue/Throat Review of Systems GI: Reports: abdominal pain : Reports: flank pain PFSH ED PFSH: Social History Smoking and tobacco/nicotine status: current every day tobacco/nicotine user (vape) Alcohol intake: never Substance/Drug Use: current Female Reproductive History: Date of last menstrual period: 02/15/24 Physical Exam Const: COMMON NORMALS: patient oriented x3 and no limitations GENERAL APPEARANCE: cooperative HENMT: COMMON NORMALS: normocephalic, atraumatic, Normal nasal mucous membranes and turbinates present, moist oral mucous membranes and oropharynx normal HEAD & SCALP: normal to inspection, normocephalic and atraumatic FACE & SINUS: normal facial exam NOSE: Normal nasal mucous membranes and turbinates present Eye: COMMON NORMALS: Equal, round and reactive pupils present, EOMs intact bilaterally and conjunctivae normal GENERAL EYE: appearance normal, both eyes and all related structures CONJUNCTIVA: Yes conjunctivae normal PUPIL: Yes Equal, round and reactive pupils present Neck/C-Spine: COMMON NORMALS: supple and no JVD Chest: COMMONS NORMALS: normal inspection of the chest Resp: COMMON NORMALS: normal respiratory effort and clear to auscultation bilaterally AUSCULTATION: clear to auscultation bilaterally Cardio: COMMON NORMALS: no JVD, regular rate, regular rhythm, No gallops present (Cardio), No murmurs present (Cardio) and No rub (Cardio) RATE: regular rate RHYTHM: regular rhythm GI: COMMON NORMALS: Normal to inspection, nondistended, normoactive bowel sounds present and Soft to palpation AUSCULTATION: Yes normoactive bowel sounds PALPATION: Yes Soft to palpation, Yes Tenderness to palpation present (GI) Details: RLQ, No Guarding due to palpation present (GI) and No Rebound tenderness present : OTHER: Right CVA tenderness. Back/Pelvis: COMMON NORMALS: thoracic and lumbar spine normal to inspection Extremity: COMMON NORMALS: normal to inspection Neuro: COMMON NORMALS: patient oriented x3 and CN's II-XII intact bilaterally Psych: COMMON NORMALS: mental status grossly normal, Normal thought process present and cooperative THOUGHT PROCESS: Normal thought process present Skin: COMMON NORMALS: no rashes or lesions noted, turgor normal and no jaundice GENERAL SKIN EXAM: no rashes or lesions noted and turgor normal Course Vital Signs: Vital signs: Vital Signs Temperature 97.8 F 02/29/24 04:26 Pulse Rate 79 02/29/24 05:40 Respiratory Rate 18 02/29/24 05:01 Blood Pressure 125/53 02/29/24 05:40 Pulse Oximetry 96 02/29/24 05:40 Oxygen Delivery Me thod Room Air 02/29/24 04:26 [facility] - Female Medical Decision Making Patient was given 10 mg of morphine IM and 4 mg of Zofran p.o. for her discomfort. Urinalysis revealed no bacteria. Many red blood cells. Patient is feeling significantly better after the injection of morphine. She was discharged in stable condition with a prescription for Percocet. Recommended she contact her urologist. Lab Data Laboratory Results Urine Color Red (Yellow) A 02/29/24 05:08 Urine Appearance Cloudy (CLEAR) A 02/29/24 05:08 Urine pH 6.0 (5-7) 02/29/24 05:08 Ur Specific [place] 1.017 (1.005-1.030) 02/29/24 05:08 Urine Protein 2+ (Negative) A 02/29/24 05:08 Urine Glucose (UA) Negative (Normal) 02/29/24 05:08 Urine Ketones Negative (Negative) 02/29/24 05:08 Urine Blood 3+ (Negative) A 02/29/24 05:08 Urine Nitrate Negative (Negative) 02/29/24 05:08 Urine Bilirubin Negative (Negative) 02/29/24 05:08 Urine Urobilinogen 1.0 mg/dL (Negative) 02/29/24 05:08 Ur Leukocyte Esterase 1+ (Negative) A 02/29/24 05:08 Urine RBC >100 /hpf (0-2) H 02/29/24 05:08 Urine WBC 6-10 /hpf (0-5) 02/29/24 05:08 Ur Squamous Epith Cells 0-5 /hpf (0-5) 02/29/24 05:08 Amorphous Sediment Not Reportable 02/29/24 05:08 Urine Bacteria None seen /hpf (NONE) 02/29/24 05:08 Hyaline Casts 0.40 /lpf 02/29/24 05:08 No radiology studies performed this visit Discharge Plan Discharge Patient Disposition: Home Clinical Impression: Renal colic on right side Condition: Stable Prescriptions: New Percocet 5-325 mg tablet 1 tab PO Q6H PRN (Reason: pain) Qty: 30 0RF No Action hydrocodone-acetaminophen 5-325 mg tablet 1 tab PO Q6H PRN tamsulosin 0.4 mg capsule 0.4 mg PO DAILY Discharge Orders: Discharge ED (Routine); Ordered 02/29/24 Ordered By: Kelvin Maurer Patient Instructions: Opioid Safety, Pain Management Coding Level of Care Code ED Ticketing Agent for Connie Woo
[2024-02-29 05:37] LABS: Add Urine Culture? Yes; Urine Color Red (Yellow)
[2024-02-29 05:40] VITALS: BP 125/53; PULSE 79; O2SAT 96
[2024-02-29 06:03] VITALS: BP 120/64; PULSE 90; O2SAT 97
== END 2024-02-29 06:05 | disposition home or self-care (01) ==
PROVIDERS: Emergency Provider Emergency Medicine
DX: N23 Unspecified renal colic (principal); F17.290 Nicotine dependence, other tobacco product, uncomplicated
CPT/HCPCS: 81003; 81015; 87086; 96372; 99284; J2270; Q0162

== ENCOUNTER 2024-03-12 07:00 | Emergency (ER) | payer OTHER, SELFPAY ==
[2024-03-12] VITALS (20 sets, daily range): BP systolic 102–153; BP diastolic 70–93; PULSE 57–99; RESP 16–18; TEMP 36.6–37; O2SAT 94–100; BMI 28.1
--- NOTE | 2024-03-12 07:14 | CT_ITS ---
WS: [id number] CT ABDOMEN AND PELVIS NONCONTRAST HISTORY: flank pain TECHNIQUE: Imaging performed through the abdomen and pelvis. Coronal and sagittal reformats are submi tted. All CT scans at [facility] use at least one of these dose optimization techniques: auto mated exposure control; mA and/or kV adjustment per patient size (includes targeted exams where dose is matched to clinical indication); or iterative reconstruction. DLP: 589.13 mGy.cm COMPARISON: 02/13/2024 Lower thorax: Lung bases are clear. Visualized heart is normal. No hiatal hernia. Liver: Mild hepatic steatosis. Gallbladder: Normal gallbladder. No pericholecystic fluid or cholelithiasis. No gallbladder wall thic kening. Pancreas: Normal size and attenuation. Normal pancreatic duct. No pancreatitis or mass. Spleen: Normal. Adrenal glands: Normal. No mass. Right kidney: Since the prior examination of 02/13/2024 double-pigtail RIGHT ureteral stent has been p laced. Proximal pigtail is coiled in the renal pelvis. The hydronephrosis has resolved. Significant s oft tissue inflammatory changes and prominence at the renal pelvis and surrounding the proximal urete r. Essentially there is nearly diffuse ureteral wall thickening but greatest proximally. No residual stones are identified. Left kidney: Normal size. A few nonobstructing calcifications. Aorta: Mild atherosclerosis abdominal aorta with no aneurysm. No free fluid, intraperitoneal air or significant lymphadenopathy. GI tract: Normal noncontrast imaging of the stomach, small bowel and colon. No obstruction or wall th ickening. Normal appendix. Abdominal wall: Small umbilical hernia contains fat only. Pelvis: IUD appears to be in good position. Distal RIGHT ureteral stent pigtail coiled in the nondist ended bladder. Osseous structures: Unremarkable. CT/CT kidney stone [id number] IMPRESSION: 1. Since the prior examination of 02/13/2024 double-pigtail RIGHT ureteral sten t has been placed. 2. RIGHT hydronephrosis has resolved. 3. Additional new significant soft tissue infiltration noted near the RIGHT re nal pelvis and encasing the proximal ureter. The ureter is thickened and irregu lar for most of its course but greatest proximally. This is a new finding. Pote ntially this could represent an injury related to the ureteral stent placement or infection. Stent does appear to be in a good position as the hydronephrosis has resolved. 4. Nonobstructing LEFT renal calcifications. 5. Normal appendix.
[2024-03-12 07:28] LABS: Basophils % 0.6 %; Eosinophils # 0.1 10^3/uL (0.0-0.8); Eosinophils % 1.5 %; Hematocrit 40.5 % (36-47); Lymphocytes # 1.9 10^3/uL (0.8-4.8); Lymphocytes % 29.1 %; Mean Corpuscular HGB Conc 35.1 g/dL (30-55); Mean Corpuscular Hemoglobin 32.2 pg (27-33); Mean Corpuscular Volume 91.8 fl (85-98); Monocytes # 0.4 10^3/uL (0.2-0.9); Monocytes % 5.9 %; Neutrophils # 4.04 10^3/uL (1.8-7.7); Neutrophils % 62.6 %; Nucleated Red Blood Cells % 0 %; Platelet Count 310 10^3/cmm (157-399); Red Blood Count 4.41 10^6/uL (3.85-5.65); Red Cell Distribution Width 12.5 % (12.1-15.1); White Blood Count 6.46 10^3/uL (3.29-11.43)
--- NOTE | 2024-03-12 07:31 | ED_ITS ---
HPI - Back Pain/Injury 2 General: Chief Complaint: Back Pain/Injury Stated Complaint: Kidney problems Time Seen by Provider: 03/12/24 07:13 History of Present Illness: 38 -year-old female presents emergency r oom complaining of right flank pain. Patient has ureteral stenosis and had a stent placed on February 10 she states that since then she has had sharp pain on the right flank extending down to the groin with hematuria. It has been very intense entire time she is treated with hydrocodone at home as well as oxycodone at this point it is because so much pain has become unbearable for her injury presents emergency room she denies any fever sweats or chills has had dysuria with hematuria. She is not currently on any antibiotics. Associated symptoms: Reports dysuria and hematuria; Deny abdominal pain, chills, fever(s) or urinary urgency Related Data Home Medications Medication Instructions Recorded Confirmed No Known Home Medications 03/12/24 03/12/24 Allergies Allergy/AdvReac Type Severity Reaction Status Date / Time capsaicin Allergy ALGY-Swell Verified 02/29/24 04:32 Lip/Tongue/Throat Review of Systems 2 Const: Denies: fever(s) or chills Card: Denies: chest pain Resp: Denies: dyspnea GI: Denies: abdominal pain : Reports: flank pain (Right), dysuria and hematuria; Denies: urinary frequency or urinary urgency Musc: Denies: neck pain or back pain Skin/Breast: Denies: rash PFSH ED 2 PFSH: Social History Smoking and tobacco/nicotine status: current every day tobacco/nicotine user (vape) Alcohol intake: never Substance/Drug Use: current Physical Exam 2 Const: GENERAL APPEARANCE: cooperative ORIENTATION/CONSCIOUSNESS: Yes awake, Yes oriented to person, Yes oriented to place and Yes oriented to time HENMT: COMMON NORMALS: normocephalic, atraumatic and hearing grossly normal bilaterally HEAD & SCALP: normocephalic and atraumatic Resp: COMMON NORMALS: normal respiratory effort, No retractions, No use of accessory muscles and clear to auscultation bilaterally AUSCULTATION: clear to auscultation bilaterally Cardio: COMMON NORMALS: regular rate, regular rhythm and No murmurs present (Cardio) RATE: regular rate RHYTHM: regular rhythm GI: COMMON NORMALS: Soft to palpation and No hepatosplenomegaly present A USCULTATION: Yes normoactive bowel sounds PALPATION: Yes Soft to palpation, No Tenderness to palpation present (GI), No Guarding due to palpation present (GI) and Yes No hepatosplenomegaly present : BLADDER/KIDNEY EXAM: Yes CVA tenderness (Bilateral much more intense on the right than the left) Back/Pelvis: GENERAL BACK: Yes CVA tenderness (Bilateral much more intense on the right than the left) Extremity: COMMON NORMALS: normal to inspection, capillary refill normal, no clubbing, cyanosis or edema, no calf tenderness and no pedal edema Neuro: SENSORIUM/ORIENTATION: Yes oriented to person, Yes oriented to place and Yes oriented to time Skin: COMMON NORMALS: no rashes or lesions noted GENERAL SKIN EXAM: no rashes or lesions noted Course 2 Vital Signs: Vital signs: Vital Signs Temperature 98.6 F 03/12/24 07:18 Pulse Rate 67 03/12/24 23:58 Respiratory Rate 16 03/12/24 23:58 Blood Pressure 102/70 03/12/24 23:58 Pulse Oximetry 94 03/12/24 23:58 Oxygen Delivery Me thod Room Air 03/12/24 22:47 Oxygen Flow Rate 2 03/12/24 18:42 MDM - Back Pain/Injury Medical Decision Making Patient has a stent in place there is still hydronephrosis patient is severe pain. This been ongoing since she had the stent placed she is also having significant hematuria. No leukocytosis. CT renal protocol shows right hydronephrosis resolved but there is significant soft tissue infiltration in the right renal pelvis encasing the proximal ureter. Thickened irregular there is concern that this may be a focus of infection. Radiology also eventually read the complication of placement of stent however the hydronephrosis has completely resolved from previous film. Renal function is good. Patient started on Vanco and Zosyn. Her white count and hemoglobin are in normal ranges. Discussed with urology at [place] will transfer. The patient did remain in the department for extended period of time while we are waiting for a bed become available at [facility]. Eventually to the bed did become available and patient was transferred via [facility]. Labs 03/12/24 07:22 03/12/24 07:22 Radiology Impressions Abdomen/Pelvis CT 03/12/24 07:14 IMPRESSION: 1. Since the prior examination of 02/13/2024 double-pigtail RIGHT ureteral stent has been placed. 2. RIGHT hydronephrosis has resolved. 3. Additional new significant soft tissue infiltration noted near the RIGHT renal pelvis and encasing the proximal ureter. The ureter is thickened and irregular for most of its course but greatest proximally. This is a new finding. Potentially this could represent an injury related to the ureteral stent placement or infection. Stent does appear to be in a good position as the hydronephrosis has resolved. 4. Nonobstructing LEFT renal calcifications. 5. Normal appendix. Laboratory Results WBC 6.46 10^3/uL (3.29-11.43) 03/12/24 07:22 RBC 4.41 10^6/uL (3.85-5.65) 03/12/24 07:22 Hgb 14.20 g/dL (11.27-16.99) 03/12/24 07:22 Hct 40.5 % (36-47) 03/12/24 07:22 MCV 91.8 fl (85-98) 03/12/24 07:22 MCH 32.2 pg (27-33) 03/12/24 07:22 MCHC 35.1 g/dL (30-55) 03/12/24 07:22 RDW 12.5 % (12.1-15.1) 03/12/24 07:22 Plt Count 310 10^3/cmm (157-399) 03/12/24 07:22 MPV 10.0 fL (7.4-10.4) 03/12/24 07:22 Neut % (Auto) 62.6 % 03/12/24 07:22 Lymph % (Auto) 29.1 % 03/12/24 07:22 [place] % (Auto) 5.9 % 03/12/24 07:22 Eos % (Auto) 1.5 % 03/12/24 07:22 Baso % (Auto) 0.6 % 03/12/24 07:22 Neut # (Auto) 4.04 10^3/uL (1.8-7.7) 03/12/24 07:22 Lymph # (Auto) 1.9 10^3/uL (0.8-4.8) 03/12/24 07:22 [place] # (Auto) 0.4 10^3/uL (0.2-0.9) 03/12/24 07:22 Eos # (Auto) 0.1 10^3/uL (0.0-0.8) 03/12/24 07:22 Baso # (Auto) 0.0 10^3/uL (0.0-0.1) 03/12/24 07:22 Nucleated RBC % (auto) 0 % 03/12/24 07:22 Nucleated RBCs # 0.0 /100WBC 03/12/24 07:22 Sodium 139 mmol/L (136-145) 03/12/24 07:22 Potassium 3.8 mmol/L (3.5-5.1) 03/12/24 07:22 Chloride 107 mmol/L (98-107) 03/12/24 07:22 Carbon Dioxide 20 mmol/L (22-29) L 03/12/24 07:22 Anion Gap 15.8 (5-19) 03/12/24 07:22 BUN 8 mg/dL (6-20) 03/12/24 07:22 Creatinine 0.6 mg/dL (0.5-0.9) 03/12/24 07:22 GFR Calculation 111.3 mL/min (90-130) 03/12/24 07:22 Glucose 103 mg/dL (65-115) 03/12/24 07:22 Calculated Osmolality 287 mOsm/kg (285-295) 03/12/24 07:22 Lactic Acid 1.7 mmol/L (0.5-2.2) 03/12/24 08:00 Calcium 9.0 mg/dL (8.5-10.5) 03/12/24 07:22 Total Bilirubin 0.2 mg/dL (0.15-1.2) 03/12/24 07:22 AST 13 U/L (0-32) 03/12/24 07:22 ALT 9 U/L (0-33) 03/12/24 07:22 Alkaline Phosphatase 58 U/L (35-105) 03/12/24 07:22 Total Protein 7.7 g/dL (6.6-8.7) 03/12/24 07:22 Albumin 4.4 g/dL (3.5-5.2) 03/12/24 07:22 Globulin 3.3 g/dL (1.3-4.6) 03/12/24 07:22 HCG, Qual Negative (Negative) 03/12/24 08:01 Urine Color Red (Yellow) A 03/12/24 11:34 Urine Appearance Cloudy (CLEAR) A 03/12/24 11:34 Urine pH TNP 03/12/24 11:34 Ur Specific [place] TNP 03/12/24 11:34 Urine Protein TNP 03/12/24 11:34 Urine Glucose (UA) TNP 03/12/24 11:34 Urine Ketones TNP 03/12/24 11:34 Urine Blood TNP 03/12/24 11:34 Urine Nitrate TNP 03/12/24 11:34 Urine Bilirubin TNP 03/12/24 11:34 Urine Urobilinogen TNP 03/12/24 11:34 Ur Leukocyte Esterase TNP 03/12/24 11:34 Urine RBC Too numerous to cnt /hpf (0-2) H 03/12/24 11:34 Urine WBC 15-25 /hpf (0-5) H 03/12/24 11:34 Ur Squamous Epith Cells 5-10 /hpf (0-5) H 03/12/24 11:34 Calcium Oxalate Crystal 40-55 /hpf H 03/12/24 11:34 Amorphous Sediment Not Reportable 03/12/24 11:34 Urine Bacteria 2+ /hpf (NONE) H 03/12/24 11:34 All radiology interpretation(s) finalized by discharge Discharge Plan Discharge Patient Disposition: Xfer Short-Term Hosp Clinical Impression: Stenosis of right ureter, Mechanical complication of ureteral stent Condition: Stable Coding Level of Care Code ED Track Hoe Operator for Connie Woo
[2024-03-12] MEDS: ketorolac 30 mg/mL INJ IVP (07:39)
[2024-03-12] MEDS: ondansetron 2 mg/ML SDV 2 mL 4 MG IVP ×2 (07:39→20:27)
[2024-03-12] MEDS: morphine 4 mg/mL SDV 1 mL IVP (07:40)
[2024-03-12 07:45] LABS: Alanine Aminotransferase 9 U/L (0-33); Albumin Level 4.4 g/dL (3.5-5.2); Alkaline Phosphatase 58 U/L (35-105); Anion Gap 15.8 (5-19); Aspartate Amino Transferase 13 U/L (0-32); Blood Urea Nitrogen 8 mg/dL (6-20); Carbon Dioxide 20 mmol/L (22-29); Chloride 107 mmol/L (98-107); Creatinine Clr Calc Pharmacy 128.8998; Globulin 3.3 g/dL (1.3-4.6); Glomerular Filtration Rate 111.3 mL/min (90-130); Glucose 103 mg/dL (65-115); Osmolality Calculated 287 mOsm/kg (285-295); Potassium 3.8 mmol/L (3.5-5.1); Sodium 139 mmol/L (136-145); Total Bilirubin 0.2 mg/dL (0.15-1.2); Total Protein 7.7 g/dL (6.6-8.7)
[2024-03-12] MEDS: sodium chloride 0.9% 1,000 ML 999 ML IV (07:58)
[2024-03-12 08:18] LABS: HCG Qualitative Urine. Negative (Negative)
[2024-03-12 09:25] LABS: Lactic Sepsis W/Reflex 1.7 mmol/L (0.5-2.2)
[2024-03-12] MEDS: piperacillin-tazobactam 3.375 GM in sodium chloride 0.9% (plus) 50 ML IV ×2 (09:46→18:57)
--- NOTE | 2024-03-12 10:19 | PC.PHAR ---
Pts' chart shows attempting pain control last month. [place] 5-325 1 every 6 hours as needed for pain last fill 02/24/24 5ds #20. Percocet 5-325 1 tablet every 6 hours as needed for pain last fill 02/29/24 8ds #30. Pt is out of both medications, last taken on Tuesday03/07/24
[2024-03-12] MEDS: morphine 4 mg/mL SDV 1 mL 2 MG IVP ×2 (10:53→16:26)
[2024-03-12] MEDS: vancomycin 1,000 MG in sodium chloride 0.9% 250 ML 250 MG IV ×2 (10:54→19:44)
[2024-03-12 11:39] LABS: Charge for UA Resulting for Rev
[2024-03-12 11:55] LABS: Add Urine Culture? Yes; Bacteria Urine 2+ /hpf; Calcium Oxalate Crystals Urine 40-55 /hpf; RBC Urine TOO NUMEROUS TO CNT /hpf (0-2); UA Manual Slide Review YES; Urine Appearance Cloudy (CLEAR); Urine Color Red (Yellow); WBC Urine 15-25 /hpf (0-5)
[2024-03-12] MEDS: diphenhydrAMINE 50 mg/mL SDV 1mL IVP ×2 (12:19→19:40)
--- NOTE | 2024-03-12 12:47 | PC.NURSE ---
PT did begin to develop a rash during the Vanc infusion. Nurse received a verbal order from physician for benadryl, nurse administered and pt stated the itching had subsided.
--- NOTE | 2024-03-12 18:50 | PHA.VACGOAL ---
Vancomycin Goal - Goal Vancomycin Goal:: 10-15 mg/L Vancomycin Indication:: Other (SUSPECTED INFECTION) - Therapy Current therapy:: Pip/Tazo (3.375 GM IVPB Q8H) Day of therpy:: Day [1]of [] . Actual body weight (kg): 76.657 kg [place] body weight: 57 KG Dosing weight (kg): 76.657 KG - Data Labs: WBC 6.46 10^3/uL (3.29-11.43) 03/12/24 07:22 RBC 4.41 10^6/uL (3.85-5.65) 03/12/24 07:22 Hgb 14.20 g/dL (11.27-16.99) 03/12/24 07:22 Hct 40.5 % (36-47) 03/12/24 07:22 MCV 91.8 fl (85-98) 03/12/24 07:22 MCH 32.2 pg (27-33) 03/12/24 07:22 MCHC 35.1 g/dL (30-55) 03/12/24 07:22 RDW 12.5 % (12.1-15.1) 03/12/24 07:22 Sodium 139 mmol/L (136-145) 03/12/24 07:22 Potassium 3.8 mmol/L (3.5-5.1) 03/12/24 07:22 Chloride 107 mmol/L (98-107) 03/12/24 07:22 Carbon Dioxide 20 mmol/L (22-29) L 03/12/24 07:22 Anion Gap 15.8 (5-19) 03/12/24 07:22 BUN 8 mg/dL (6-20) 03/12/24 07:22 Creatinine 0.6 mg/dL (0.5-0.9) 03/12/24 07:22 GFR Calculation 111.3 mL/min (90-130) 03/12/24 07:22 Last dialysis session:: N/A Drug administration history:: Medications Vancomycin HCl 1,000 mg/ (Sodium Chloride) 250 mls @ 250 mls/hr IV Q8H RUSH Piperacillin Sod/Tazobactam (Sod 3.375 gm/ Sodium Chloride) 50 mls @ 12.5 mls/hr IV Q8H RUSH; Protocol Treatment plan:: new consult Regimen:: 1000 MG IVPB Q8H Follow up:: SCR DAILY WITH AM LABS
== END 2024-03-13 00:02 | disposition short-term general hospital (02) ==
PROVIDERS: Emergency Provider Family Medicine
DX: Q62.10 Congenital occlusion of ureter, unspecified (principal); T83.192A Other mechanical complication of indwelling ureteral stent, initial encounter; F17.290 Nicotine dependence, other tobacco product, uncomplicated
CPT/HCPCS: 36415; 74176; 80053; 81003; 81015; 81025; 83605; 85025; 87040; 87086; 96365; 96366; 96367; 96375; 96376; 99285; J1200; J1885; J2270; J2405; J2543; J3370; J7030; J7050

== ENCOUNTER 2024-05-25 21:49 | Emergency (ER) | payer OTHER, SELFPAY ==
[2024-05-25 21:59] VITALS: BP 157/87; PULSE 113; RESP 17; TEMP 36.7; O2SAT 98; BMI 26.6
--- NOTE | 2024-05-25 22:23 | CTR_ITS ---
PROCEDURE INFORMATION: Exam: CT Abdomen And Pelvis Without Contrast Exam date and time: 05/25/2024 10:35 PM Age: 38 years old Clinical indication: Abdominal pain; Right; Prior surgery; Surgery date: 6+ months; Surgery type: Iud. History of multiple RT sided ureteral stents; Patient HX: C/O RT flank pain. History of recurrent stones with ureteral stents. TECHNIQUE: Imaging protocol: Computed tomography of the abdomen and pelvis without contrast. Radiation optimization: All CT scans at this facility use at least one of these dose optimization techniques: automated exposure control; mA and/or kV adjustment per patient size (includes targeted exams where dose is matched to clinical indication); or iterative reconstruction. COMPARISON: 1. CT kidney stone [id number] 03/12/2024 8:[address] kidney stone [id number] 02/13/2024 4:13 AM RADIATION DOSE METRICS: Total DLP (mGy-cm): 611.03 FINDINGS: Lungs: The lung bases are clear. Liver: Unremarkable. Gallbladder and biliary ducts: The gallbladder is contracted. No visible gallstones by CT. No biliary tree dilation. Pancreas: Unremarkable. Spleen: Unremarkable. Adrenal glands: Unremarkable. Kidneys and ureters: The previously seen right ureteral stent has been removed in the interval. Severe right hydronephrosis and hydroureter. The distal ureter in the mid and lower pelvis is only mildly dilated. This has developed since the exam of 03/12/2024, but appears similar to the exam of 02/13/2024. No definite ureteral calculus is identified. The appearance raises suspicion of a distal right ureteral stricture. Other possible etiologies for this appearance might include a radiolucent or recently passed right ureteral calculus, and less commonly ureteral neoplasm. Please correlate clinically. Two or 3 small left intrarenal calculi. No left hydronephrosis or visible left ureteral calculus. Stomach and bowel: No significant bowel distention. There are no CT findings to suggest diverticulitis. Appendix: The appendix is visualized and appears normal. Intraperitoneal space: No free intraperitoneal air, or ascites. Vasculature: No evidence for abdominal aortic aneurysm. Lymph nodes: No retroperitoneal adenopathy. Urinary bladder: No visible calculus in the urinary bladder. Reproductive: An IUD is present within the uterus. Bones/joints: No significant acute finding. Soft tissues: Very small umbilical hernia, containing only fat, not significantly changed. CT/CT kidney stone [id number] IMPRESSION: 1. Severe right hydronephrosis and hydroureter. No visible ureteral calculus. The appearance raises suspicion for a distal right ureteral stricture. See additional details and discussion above. 2. Small left intrarenal calculi. No left hydronephrosis or visible left ureteral calculus. 3. Normal appendix. 4. No visible gallstones by CT. 5. Other findings discussed above.
--- NOTE | 2024-05-25 22:29 | W.ED.ABDPA2 ---
HPI - Abdominal Pain General: Chief Complaint: Abdominal Pain Stated Complaint: back/flank pain Time Seen by Provider: 05/25/24 22:01 Source: patient Mode of arrival: ambulatory Limitations: no limitations History of Present Illness: 38-year-old female states she is a history of kidney stones and she had right-sided flank pain since Tuesday states it got much worse today. States it is radiating into her groin she states pain is currently 9 out of 10 she denies any worse improving factors denies any fevers denies any dysuria Associated Symptoms: Reports nausea; Denies chills, diarrhea and fever(s) Related Data Date of Last Menstrual Period: 05/04/24 Previous Rx's Medication Instructions Recorded hydrocodone 5 mg-acetaminophen 325 1 tab PO Q6H PRN pain #14 tabs 05/26/24 mg tablet ondansetron 4 mg disintegrating 4 mg PO Q6H PRN nausea and 05/26/24 tablet vomiting #14 tabs Allergies Allergy/AdvReac Type Severity Reaction Status Date / Time capsaicin Allergy ALGY-Swell Verified 05/25/24 21:59 Lip/Tongue/Throat Review of Systems Const: Denies: fever(s), chills, body aches or change in appetite ENMT: Denies: throat pain or dental pain Card: Denies: chest pain Resp: Denies: dyspnea GI: Reports: abdominal pain and nausea; Denies: diarrhea : Reports: flank pain Musc: Denies: neck pain or back pain Skin/Breast: Denies: rash Neuro: Denies: headache(s) PFS ED PFSH: Social History Smoking and tobacco/nicotine status: current every day tobacco/nicotine user (vape) Alcohol intake: never Substance/Drug Use: current Female Reproductive History: Date of last menstrual period: 05/04/24 Physical Exam Const: COMMON NORMALS: no acute distress, patient oriented x3 and healthy appearing HENMT: COMMON NORMALS: normocephalic and atraumatic HEAD & SCALP: normocephalic and atraumatic Neck/C-Spine: COMMON NORMALS: full ROM and supple Chest: COMMONS NORMALS: normal inspection of the chest Resp: COMMON NORMALS: normal respiratory effort, No retractions, No use of accessory muscles and clear to auscultation bilaterally AUSCULTATION: clear to auscultation bilaterally Cardio: COMMON NORMALS: regular rate, regular rhythm and No murmurs present (Cardio) RATE: regular rate RHYTHM: regular rhythm GI: COMMON NORMALS: Normal to inspection, nondistended, normoactive bowel sounds present, Soft to palpation, non-tender and no masses PALPATION: Yes Soft to palpation Extremity: COMMON NORMALS: normal to inspection and full ROM Neuro: COMMON NORMALS: patient oriented x3, moves all extremities and no focal motor deficits Psych: COMMON NORMALS: mental status grossly normal, Normal thought process present and cooperative THOUGHT PROCESS: Normal thought process present Skin: COMMON NORMALS: no rashes or lesions noted and no wounds GENERAL SKIN EXAM: no rashes or lesions noted Course Vital Signs: Vital signs: Vital Signs Temperature 98.0 F 05/25/24 21:59 Pulse Rate 103 H 05/26/24 00:33 Respiratory Rate 16 05/26/24 01:01 Blood Pressure 128/87 05/26/24 01:01 Pulse Oximetry 98 05/26/24 01:01 Oxygen Delivery Me thod Room Air 05/26/24 01:01 MDM - Abdominal Pain Medical Decision Making Patient presents with right flank pain she was found to have hydronephrosis likely ureter stricture. She states she has had these in the past her pain is much improved no signs UTI she does have a urologist in [place] she is to follow-up next week prescribe her pain meds she is to return if worsening she understands agrees to plan. Medical Records I reviewed the patient's medical records. Lab Data I reviewed the patient's lab results. 05/25/24 20:31 05/25/24 20:31 Labs/Radiology: Radiology Impressions Abdomen/Pelvis CT 05/25/24 22:23 IMPRESSION: 1. Severe right hydronephrosis and hydroureter. No visible ureteral calculus. The appearance raises suspicion for a distal right ureteral stricture. See additional details and discussion above. 2. Small left intrarenal calculi. No left hydronephrosis or visible left ureteral calculus. 3. Normal appendix. 4. No visible gallstones by CT. 5. Other findings discussed above. Laboratory Results WBC 10.07 10^3/uL (3.29-11.43) 05/25/24 20:31 RBC 4.32 10^6/uL (3.85-5.65) 05/25/24 20: Hgb 13.80 g/dL (11.27-16.99) 05/25/24 20: Hct 40.1 % (36-47) 05/25/24 20: MCV 92.8 fl (85-98) 05/25/24 20: MCH 31.9 pg (27-33) 05/25/24: MCHC 34.4 g/dL (30-55) 05/25/24 20: RDW 11.3 % (12.1-15.1) L 05/25/24 20: Plt Count 282 10^3/cmm (157-399) 05/25/24: MPV 10.6 fL (7.4-10.4) H 05/25/24 20: Neut % (Auto) 64.4 % 05/25/24: Lymph % (Auto) 27.9 % 05/25/24: [place] % (Auto) 6.4 % 05/25/24 20: Eos % (Auto) 0.6 % 05/25/24: Baso % (Auto) 0.4 % 05/25/24: Neut # (Auto) 6.49 10^3/uL (1.8-7.7) 05/25/24 20: Lymph # (Auto) 2.8 10^3/uL (0.8-4.8) 05/25/24: [place] # (Auto) 0.6 10^3/uL (0.2-0.9) 05/25/24: Eos # (Auto) 0.1 10^3/uL (0.0-0.8) 05/25/24: Baso # (Auto) 0.0 10^3/uL (0.0-0.1) 05/25/24: Nucleated RBC % (auto) 0 % 05/25/24 20: Nucleated RBCs # 0.0 /100WBC 05/25/24 20: Sodium 139 mmol/L (136-145) 05/25/24: Potassium 3.1 mmol/L (3.5-5.1) L 05/25/24 20:31 Chloride 104 mmol/L (98-107) 05/25/24 20: Carbon Dioxide 22 mmol/L (22-29) 05/25/24 20: Anion Gap 16.1 (5-19) 05/25/24 20: BUN 8 mg/dL (6-20) 05/25/24 20: Creatinine 0.8 mg/dL (0.5-0.9) 05/25/24 20: GFR Calculation 79.9 mL/min (90-130) L 05/25/24 20: Glucose 107 mg/dL (65-115) 05/25/24 20: Calculated Osmolality 287 mOsm/kg (285-295) 05/25/24 20: Calcium 9.3 mg/dL (8.5-10.5) 05/25/24 20: Total Bilirubin 0.2 mg/dL (0.15-1.2) 05/25/24 20: AST 13 U/L (0-32) 05/25/24 20: ALT 10 U/L (0-33) 05/25/24 20: Alkaline Phosphatase 68 U/L (35-105) 05/25/24 20: Total Protein 7.8 g/dL (6.6-8.7) 05/25/24 20: Albumin 4.5 g/dL (3.5-5.2) 05/25/24 20: Globulin 3.3 g/dL (1.3-4.6) 05/25/24 20: Lipase 44 U/L (13-60) 05/25/24 20: HCG, Qual Negative (Negative) 05/25/24 20:31 Urine Color Yellow (Yellow) 05/25/24 23:10 Urine Appearance Cloudy (CLEAR) A 05/25/24 23:10 Urine pH 5.5 (5-7) 05/25/24 23:10 Ur Specific [place] 1.020 (1.005-1.030) 05/25/24 23:10 Urine Protein Negative (Negative) 05/25/24 23:10 Urine Glucose (UA) Negative (Normal) 05/25/24 23:10 Urine Ketones Negative (Negative) 05/25/24 23:10 Urine Blood Non-haemolysed trace (Negative) 05/25/24 23:10 Urine Nitrate Negative (Negative) 05/25/24 23:10 Urine Bilirubin Negative (Negative) 05/25/24 23:10 Urine Urobilinogen 1.0 mg/dL (Negative) 05/25/24 23:10 Ur Leukocyte Esterase Trace (Negative) A 05/25/24 23:10 Urine RBC 3-5 /hpf (0-2) 05/25/24 23:10 Urine WBC 6-10 /hpf (0-5) 05/25/24 23:10 Ur Squamous Epith Cells 21-50 /hpf (0-5) 05/25/24 23:10 Amorphous Sediment Not Reportable 05/25/24 23:10 Urine Bacteria 2+ /hpf (NONE) H 05/25/24 23:10 Hyaline Casts 0.40 /lpf 05/25/24 23:10 All radiology interpretation(s) finalized by discharge Discharge Plan Discharge Patient Disposition: Home Clinical Impression: Stricture of ureter, Flank pain Condition: Stable Prescriptions: New hydrocodone-acetaminophen 5-325 mg tablet 1 tab PO Q6H PRN (Reason: pain) Qty: 14 0RF ondansetron 4 mg tablet,disintegrating 4 mg PO Q6H PRN (Reason: nausea and vomiting) Qty: 14 0RF Discharge Orders: Discharge ED (Routine); Ordered 05/26/24 Ordered By: Luis Mireles Discharge Diet: Advance as tolerated Discharge Activity: Resume usual activity Patient Instructions: Flank Pain (ED), Opioid Safety Coding Level of Care Code ED Systems Development Consultant for Connie Woo
[2024-05-25 22:36] LABS: Basophils % 0.4 %; Eosinophils # 0.1 10^3/uL (0.0-0.8); Eosinophils % 0.6 %; Hematocrit 40.1 % (36-47); Lymphocytes # 2.8 10^3/uL (0.8-4.8); Lymphocytes % 27.9 %; Mean Corpuscular HGB Conc 34.4 g/dL (30-55); Mean Corpuscular Hemoglobin 31.9 pg (27-33); Mean Corpuscular Volume 92.8 fl (85-98); Mean Platelet Volume 10.6 fL (7.4-10.4); Monocytes # 0.6 10^3/uL (0.2-0.9); Monocytes % 6.4 %; Neutrophils # 6.49 10^3/uL (1.8-7.7); Neutrophils % 64.4 %; Nucleated Red Blood Cells % 0 %; Platelet Count 282 10^3/cmm (157-399); Red Blood Count 4.32 10^6/uL (3.85-5.65); Red Cell Distribution Width 11.3 % (12.1-15.1); White Blood Count 10.07 10^3/uL (3.29-11.43)
[2024-05-25 22:37] VITALS: BP 132/79; PULSE 101; O2SAT 98
[2024-05-25 22:46] LABS: HCG, Serum Qual Negative (Negative)
[2024-05-25 22:53] LABS: Alanine Aminotransferase 10 U/L (0-33); Albumin Level 4.5 g/dL (3.5-5.2); Alkaline Phosphatase 68 U/L (35-105); Anion Gap 16.1 (5-19); Aspartate Amino Transferase 13 U/L (0-32); Blood Urea Nitrogen 8 mg/dL (6-20); Calcium 9.3 mg/dL (8.5-10.5); Carbon Dioxide 22 mmol/L (22-29); Chloride 104 mmol/L (98-107); Creatinine Clr Calc Pharmacy 94.2412; Globulin 3.3 g/dL (1.3-4.6); Glomerular Filtration Rate 79.9 mL/min (90-130); Glucose 107 mg/dL (65-115); Lipase 44 U/L (13-60); Osmolality Calculated 287 mOsm/kg (285-295); Potassium 3.1 mmol/L (3.5-5.1); Sodium 139 mmol/L (136-145); Total Bilirubin 0.2 mg/dL (0.15-1.2); Total Protein 7.8 g/dL (6.6-8.7)
[2024-05-25] MEDS: ondansetron 2 mg/ML SDV 2 mL 4 MG IVP (23:05)
[2024-05-25] MEDS: sodium chloride 0.9% 1,000 ML 999 ML IV (23:05)
[2024-05-25 23:06] VITALS: RESP 16; O2SAT 99
[2024-05-25] MEDS: HYDROmorphone 1 mg/mL INJ 1 mL IVP (23:06)
[2024-05-25 23:12] VITALS: BP 123/70; PULSE 100; RESP 16; O2SAT 98
[2024-05-25 23:19] LABS: Bilirubin Urine Negative (Negative); Blood Urine Non-haemolysed trace (Negative); Glucose Urine UA Negative (Normal); Ketones Urine Negative (Negative); Leukocyte Esterase Urine Trace (Negative); Nitrate Urine Negative (Negative); Protein Urine Negative (Negative); Urine Appearance Cloudy (CLEAR); Urine Color Yellow (Yellow); pH Urine 5.5 (5-7)
[2024-05-25 23:21] LABS: Add Urine Microscopic? YES; Bacteria Urine 2+ /hpf; Squamous Epithelial Cell Urine 21-50 /hpf (0-5)
[2024-05-26 00:29] VITALS: RESP 16; O2SAT 97
[2024-05-26] MEDS: HYDROmorphone 1 mg/mL INJ 1 mL IVP (00:29)
[2024-05-26] MEDS: ketorolac 30 mg/mL INJ 15 MG IVP (00:29)
[2024-05-26 00:33] VITALS: BP 129/72; PULSE 103; RESP 16; O2SAT 99
[2024-05-26 01:01] VITALS: BP 128/87; RESP 16; O2SAT 98
[2024-05-26 01:38] VITALS: BP 136/82; PULSE 98; RESP 14; O2SAT 99
== END 2024-05-26 01:40 | disposition home or self-care (01) ==
PROVIDERS: Emergency Provider Emergency Medicine
DX: R10.9 Unspecified abdominal pain (principal); N13.5 Crossing vessel and stricture of ureter without hydronephrosis; F17.290 Nicotine dependence, other tobacco product, uncomplicated
CPT/HCPCS: 74176; 80053; 81001; 83690; 84703; 85025; 96361; 96374; 96375; 96376; 99285; J1171; J1885; J2405; J7030

== ENCOUNTER 2025-02-04 01:18 | Emergency (ER) | payer BC, MEDICAID, SELFPAY ==
[2025-02-04 01:18] VITALS: BP 124/58; PULSE 102; RESP 18; TEMP 36.8; O2SAT 98; BMI 29.1
--- NOTE | 2025-02-04 01:32 | ED_ITS ---
HPI - Abdominal Pain 2 General: Chief Complaint: Abdominal Pain Stated Complaint: VOMITING, FLANK PAIN, KIDNEY ISSUES Time Seen by Provider: 02/04/25 01:23 History of Present Illness: 39-year-old female presents emergency ro om with right flank pain radiating down into the groin. She has had a couple episodes of vomiting as well. Began around 5:00 last night. She has had kidney stones in the past. No fever sweats or chills she has noticed a little bit of blood tinge to her urine. Associated Symptoms: Reports dysuria and hematuria; Denies chills and fever(s) Related Data Previous Rx's ?Medication ?Instructions ?Recorded hydrocodone 5 mg-acetaminophen 325 1 tab PO Q6H PRN pa in #14 tabs 05/26/24 mg tablet ondansetron 4 mg disintegrating 4 mg PO Q6H PRN nausea and 05/26/24 tablet vomiting #14 tabs promethazine 25 mg tablet 25 mg PO Q6H PRN nausea and 02/04/25 vomiting #20 tabs Allergies Allergy/AdvReac Type Severity Reaction Status Date / Time capsaicin Allergy ALGY-Swell Verified 05/25/24 21:59 Lip/Tongue/Throat vancomycin Allergy ALGY-Rash Verified 02/04/25 01:52 Review of Systems 2 Const: Denies: fever(s) or chills Card: Denies: chest pain Resp: Denies: dyspnea GI: Denies: abdominal pain : Reports: flank pain, dysuria and hematuria; Denies: urinary frequency or urinary urgency Musc: Denies: neck pain or back pain Skin/Breast: Denies: rash PFSH ED 2 PFSH: Social History Smoking and tobacco/nicotine status: current every day tobacco/nicotine user (vape) Alcohol intake: never Substance/Drug Use: current Physical Exam 2 Const: GENERAL APPEARANCE: cooperative ORIENTATION/CONSCIOUSNESS: Yes awake, Yes oriented to person, Yes oriented to place and Yes oriented to time HENMT: COMMON NORMALS: normocephalic, atraumatic and hearing grossly normal bilaterally HEAD & SCALP: normocephalic and atraumatic Resp: COMMON NORMALS: normal respiratory effort, No retractions, No use of accessory muscles and clear to auscultation bilaterally AUSCULTATION: clear to auscultation bilaterally Cardio: COMMON NORMALS: regular rate, regular rhythm and No murmurs present (Cardio) RATE: regular rate RHYTHM: regular rhythm GI: COMMON NORMALS: Soft to palpation and No hepatosplenomegaly present A USCULTATION: Yes normoactive bowel sounds PALPATION: Yes Soft to palpation, No Tenderness to palpation present (GI), No Guarding due to palpation present (GI) and Yes No hepatosplenomegaly present Extremity: COMMON NORMALS: normal to inspection, capillary refill normal, no clubbing, cyanosis or edema, no calf tenderness and no pedal edema Neuro: SENSORIUM/ORIENTATION: Yes oriented to person, Yes oriented to place and Yes oriented to time Skin: COMMON NORMALS: no rashes or lesions noted GENERAL SKIN EXAM: no rashes or lesions noted Course 2 Vital Signs: Vital signs: Vital Signs Temperature 98.2 F 02/04/25 01:18 Pulse Rate 86 02/04/25 04:05 Respiratory Rate 19 H 02/04/25 04:05 Blood Pressure 119/65 02/04/25 04:05 Pulse Oximetry 97 02/04/25 04:05 Oxygen Delivery Me thod Room Air 02/04/25 03:01 MDM - Abdominal Pain Medical Decision Making CT shows signs of mild gastroenteritis. There is no cystitis no kidney stone noted on the CT no other intra-abdominal pathology at this time. Liver functions were normal. Discharge patient home on clear liquid diet promethazine as needed was given IV fluids here she is feeling somewhat better can follow-up with her primary care doctor Medical Records I reviewed the patient's medical records. Lab Data I reviewed the patient's lab results. 02/04/25 01:30 02/04/25 01:30 Labs/Radiology: Radiology Impressions Abdomen/Pelvis CT 02/04/25 01:37 IMPRESSION: 1. Fluid within the small bowel and colon without evidence of bowel wall thickening. This may reflect viral gastroenteritis in the appropriate clinical situation. 2. Stable nonobstructing left renal stone. 3. Incidental/nonacute findings are listed in the report. Laboratory Results WBC 17.25 10^3/uL (3.29-11.43) H 02/04/25 01:30 RBC 4.94 10^6/uL (3.85-5.65) 02/04/25 01:30 Hgb 15.40 g/dL (11.27-16.99) 02/04/25 01:30 Hct 45.5 % (36-47) 02/04/25 01:30 MCV 92.1 fl (85-98) 02/04/25 01:30 MCH 31.2 pg (27-33) 02/04/25 01:30 MCHC 33.8 g/dL (30-55) 02/04/25 01:30 RDW 11.9 % (12.1-15.1) L 02/04/25 01:30 Plt Count 277 10^3/cmm (157-399) 02/04/25 01:30 MPV 10.7 fL (7.4-10.4) H 02/04/25 01:30 Neut % (Auto) 89.4 % 02/04/25 01:30 Lymph % (Auto) 6.2 % 02/04/25 01:30 [place] % (Auto) 3.3 % 02/04/25 01:30 Eos % (Auto) 0.4 % 02/04/25 01:30 Baso % (Auto) 0.2 % 02/04/25 01:30 Neut # (Auto) 15.42 10^3/uL (1.8-7.7) H 02/04/25 01:30 Lymph # (Auto) 1.1 10^3/uL (0.8-4.8) 02/04/25 01:30 [place] # (Auto) 0.6 10^3/uL (0.2-0.9) 02/04/25 01:30 Eos # (Auto) 0.1 10^3/uL (0.0-0.8) 02/04/25 01:30 Baso # (Auto) 0.0 10^3/uL (0.0-0.1) 02/04/25 01:30 Nucleated RBC % (auto) 0 % 02/04/25 01:30 Nucleated RBCs # 0.0 /100WBC 02/04/25 01:30 Sodium 142 mmol/L (136-145) 02/04/25 01:30 Potassium 3.1 mmol/L (3.5-5.1) L 02/04/25 01:30 Chloride 110 mmol/L (98-107) H 02/04/25 01:30 Carbon Dioxide 17 mmol/L (22-29) L 02/04/25 01:30 Anion Gap 18.1 (5-19) 02/04/25 01:30 BUN 11 mg/dL (6-20) 02/04/25 01:30 Creatinine 0.7 mg/dL (0.5-0.9) 02/04/25 01:30 GFR Calculation 92.7 mL/min (90-130) 02/04/25 01:30 Glucose 134 mg/dL (65-115) H 02/04/25 01:30 Calculated Osmolality 295 mOsm/kg (285-295) 02/04/25 01:30 Calcium 9.4 mg/dL (8.5-10.5) 02/04/25 01:30 Total Bilirubin 0.3 mg/dL (0.15-1.2) 02/04/25 01:30 AST 15 U/L (0-32) 02/04/25 01:30 ALT 9 U/L (0-33) 02/04/25 01:30 Alkaline Phosphatase 60 U/L (35-105) 02/04/25 01:30 Total Protein 7.8 g/dL (6.6-8.7) 02/04/25 01:30 Albumin 4.2 g/dL (3.5-5.2) 02/04/25 01:30 Globulin 3.6 g/dL (1.3-4.6) 02/04/25 01:30 Lipase 18 U/L (13-60) 02/04/25 01:30 HCG, Qual Negative (Negative) 02/04/25 01:30 Urine Color Yellow (Yellow) 02/04/25 03:10 Urine Appearance Cloudy (CLEAR) A 02/04/25 03:10 Urine pH 5.5 (5-7) 02/04/25 03:10 Ur Specific [place] 1.030 (1.005-1.030) 02/04/25 03:10 Urine Protein 1+ (Negative) A 02/04/25 03:10 Urine Glucose (UA) Negative (Normal) 02/04/25 03:10 Urine Ketones Trace (Negative) 02/04/25 03:10 Urine Blood Negative (Negative) 02/04/25 03:10 Urine Nitrate Negative (Negative) 02/04/25 03:10 Urine Bilirubin Negative (Negative) 02/04/25 03:10 Urine Urobilinogen 1.0 mg/dL (Negative) 02/04/25 03:10 Ur Leukocyte Esterase Trace (Negative) A 02/04/25 03:10 Urine RBC 3-5 /hpf (0-2) 02/04/25 03:10 Urine WBC 0-5 /hpf (0-5) 02/04/25 03:10 Ur Squamous Epith Cells 21-50 /hpf (0-5) H 02/04/25 03:10 Amorphous Sediment Not Reportable 02/04/25 03:10 Urine Bacteria 2+ /hpf (NONE) H 02/04/25 03:10 Hyaline Casts 2.46 /lpf 02/04/25 03:10 All radiology interpretation(s) finalized by discharge Discharge Plan Discharge Patient Disposition: Home Clinical Impression: Gastroenteritis Condition: Stable Prescriptions: New promethazine 25 mg tablet 25 mg PO Q6H PRN (Reason: nausea and vomiting) Qty: 20 0RF No Action hydrocodone-acetaminophen 5-325 mg tablet 1 tab PO Q6H PRN (Reason: pain) Qty: 14 0RF ondansetron 4 mg tablet,disintegrating 4 mg PO Q6H PRN (Reason: nausea and vomiting) Qty: 14 0RF Discharge Orders: Discharge ED (Routine); Ordered 02/04/25 Ordered By: Tim Crockett Discharge Diet: Clear Liquid Discharge Activity: Resume usual activity Patient Instructions: Opioid Safety, Pain Management, Patient Portal & Sarah Instructions Activity Restrictions/Additional Instructions: Thank you for choosing [facility] for your healthcare needs today. It is very important that you follow up as instructed or that you return to the Emergency Department should you have concerns or if your condition changes or worsens in any way. You were seen in the emergency room quadrant abdominal pain nausea vomiting. Your white count was slightly elevated CT did not show any signs of kidney stones urine did not show infection. CT did show some mild inflammation of the bowel consistent with a gastroenteritis. You are given IV fluids and antiemetics. Will discharge home recommend that you follow-up with your doctor next 2 to 3 days and use promethazine as needed follow-up with your primary care doctor if not improving Print Language: Korean Coding Level of Care Code ED Misdraw Hand for Connie Woo
--- OUTSIDE RECORDS SUMMARY | 2025-02-04 01:35 | XMS_ITS | CCD ---
Author Name Interface, [id number] [place] [address] [facility] [place] [address] [address] Team Prov[address] Care [address] Crew Member Name Role Phone Gigi Pedersen MD Unavailable Unavailable Reason for Visit Social History Date Name Value Sex Female
--- OUTSIDE RECORDS SUMMARY | 2025-02-04 01:35 | XMS_ITS | Clinical Summary ---
Author Organization [facility] Address [address] [place] [address] Phone Care Team Providers Care Hand Surgeon Name Role Phone Francoise Maloney Primary Care Provider Allergies Active Allergy Reactions Criticality Noted Date Comments Capsaicin Hives,Angioedema High 09/02/2023 Vancomycin Rash,Itching Low 03/13/2024 Chest and back developed redness and itched Medications copper (ParaGard T 380A) 380 square mm IUD 1 Device by Intrauterine route one time only. Every 10 years Active doxepin (SINEquan) 100 mg capsuleIndicat ions:MARY (generalized anxiety disorder),Inso mnia due to medical condition Take 1 Capsule (100 mg) by mouth daily. 30 Capsule 11 5 Active tamsulosin (FLOMAX) 0.4 mg capsuleIndicat ions:History of removal of ureteral stent,Calculus of kidney TAKE ONE CAPSULE BY MOUTH DAILY. 30 Capsule 6 5 Active tirzepatide, weight loss, (Zepbound) 5 mg/0.5 mL Pen InjectorIndica tions:Obesity (BMI 30.0-34.9) Inject 0.5 mL (5 mg) by subcutaneous injection every 7 days. 6 mL 3 5 Active hydrOXYzine HCL (ATARAX) 25 mg tabletIndicati ons:Insomnia due to medical condition,MARY (generalized anxiety disorder) Take 1 Tablet (25 mg) by mouth 3 times daily as needed for Anxiety or Insomnia. 90 Tablet 3 5 Active ALPRAZolam (Xanax) 0.25 mg tabletIndicati ons:MARY (generalized anxiety disorder) Take 1 Tablet (0.25 mg) by mouth nightly as needed for Anxiety. 10 Tablet 5 Active Narcan 4 mg/actuation Mize, Non-Aerosol [SPRAY 1 SPRAY IN NOSTRIL NEEDED FOR OVERDOSE. CAN REPEAT IN ALTERNATING NOSTRILS EVERY 3 MINUTES UNTIL RESPONSIVE OR HELP ARRIVES CALL 911 IMMEDIATELY.] 5 Active traMADol (ULTRAM) 50 mg tabletIndicati ons:Hydronephr osis of right kidney,Calculu s of kidney,Renal colic on right side,Hydrouret er on right Take 1 Tablet (50 mg) by mouth every 8 hours as needed for Pain. 30 Tablet 5 Active traMADol (ULTRAM) 50 mg tabletIndicati ons:Hydronephr osis of right kidney,Calculu s of kidney,Renal colic on right side,Hydrouret er on right Take 1 Tablet (50 mg) by mouth every 8 hours as needed for Pain. 30 Tablet 5 025 Discontin ued(Reord er) Active Problems Problem Noted Date Diagnosed Date Obesity (BMI 30.0-34.9) 12/25/2024 Localized swelling of lower extremity 10/22/2024 Insomnia due to medical condition 10/05/2024 Hydroureter on right 09/19/2024 Renal colic on right side 09/19/2024 MARY (generalized anxiety disorder) 07/25/2024 Heart palpitations 07/25/2024 Syncope 07/25/2024 Psychophysiological insomnia 07/25/2024 History of removal of ureteral stent 03/26/2024 History of hydronephrosis 03/13/2024 S/P ureteral stent placement 03/13/2024 Calculus of kidney 02/24/2024 Severe hydronephrosis of right kidney 02/14/2024 Sinus arrhythmia 02/14/2024 Resolved Problems Problem Noted Date Diagnosed Date Resolved Date Encounter for removal of ureteral stent 03/15/2024 03/26/2024 Right flank pain 03/13/2024 03/26/2024 Gross hematuria 02/24/2024 03/26/2024 Obstruction of right ureter 02/14/2024 02/24/2024 Abnormal EKG 02/14/2024 03/26/2024 Ureteral stone 09/02/2023 02/24/2024 Encounters Date Type Department Care Team Description 01/29/2025 External Device Data STL ABSTRACTION Provider, Abstract 01/28/2025 Results Follow-Up [facility] [address] [place] [address] Bonner, October, PROTEOMICS SCIENTIST POC URINALYSIS DIPSTICK AUTOMATED, URINE CULTURE 01/25/2025 1:20 PM CDT Office Visit [facility] [address] [place] [address] October, PROTEOMICS SCIENTIST Hydronephrosis of right kidney (Primary Dx); Flank pain; Calculus of kidney; Renal colic on right side 01/25/2025 Refill [facility] [address] [place] [address] Francoise Maloney, DO Hydronephrosis of right kidney; Calculus of kidney; Renal colic on right side; Hydroureter on right 01/22/2025 External Device Data STL ABSTRACTION Provider, Abstract 01/10/2025 Refill [facility] [address] [place] [address] Francoise Maloney, DO Hydronephrosis of right kidney; Calculus of kidney; Renal colic on right side; Hydroureter on right 01/02/2025 Orders Only [facility] [address] [place] [address] Corrine Collado LPN 01/01/2025 External Device Data STL ABSTRACTION Provider, Abstract 01/01/2025 Telephone [place] [address] [place] [address] Francoise Maloney, DO Patient Communication; Patient Communication 12/31/2024 Refill [place] [address] [place] [address] Francoise Maloney, DO Hydronephrosis of right kidney; Calculus of kidney; Renal colic on right side; Hydroureter on right 12/25/2024 11:00 AM CDT Office Visit [facility] [address] [place] [address] Pedro Aparicio Stone, PROTEOMICS SCIENTIST Renal colic on right side (Primary Dx); Obesity (BMI 30.0-34.9); Insomnia due to medical condition; MARY (generalized anxiety disorder) 12/19/2024 Orders Only [facility] [address] [place] [address] AparicioPedro Stone, PROTEOMICS SCIENTIST Hydronephrosis of right kidney (Primary Dx); Calculus of kidney; Renal colic on right side; Hydroureter on right 12/19/2024 External Device Data STL ABSTRACTION Provider, Abstract 12/18/2024 External Device Data STL ABSTRACTION Provider, Abstract 12/18/2024 External Device Data STL ABSTRACTION Provider, Abstract 12/12/2024 Refill [facility] [address] [place] [address] Francoise Maloney, DO Severe hydronephrosis of right kidney 12/11/2024 External Device Data STL ABSTRACTION Provider, Abstract 12/10/2024 Orders Only [facility] [address] [place] [address] AlessandraAngijesus Stone, PROTEOMICS SCIENTIST MARY (generalized anxiety disorder) (Primary Dx) 12/04/2024 External Device Data STL ABSTRACTION Provider, Abstract 11/30/2024 Refill [facility] [address] [place] [address] Francoise Maloney, DO Severe hydronephrosis of right kidney 11/27/2024 Refill [facility] [address] [place] [address] Pedro Aparicio FNP Obesity (BMI 30.0-34.9) 11/27/2024 Refill [facility] [address] [place] [address] Francoise Maloney, DO Severe hydronephrosis of right kidney 11/22/2024 Refill [facility] [address] [place] [address] Pedro Aparicio FNP History of removal of ureteral stent; Calculus of kidney 11/13/2024 External Device Data STL ABSTRACTION Provider, Abstract 11/13/2024 External Device Data STL ABSTRACTION Provider, Abstract 11/13/2024 Refill [facility] [address] [place] [address] Francoise Maloney, DO Severe hydronephrosis of right kidney 11/07/2024 Telephone [facility] [address] [place] [address] Pedro Aparicio FNP Primary Care Outreach (THOMAS Cohn faxed to medicaid on 11/07/2024) 11/05/2024 Orders Only [facility] [address] [place] [address] Pedro Aparicio FNP Obesity (BMI 30.0-34.9) (Primary Dx) from Last 3 Months Family History Medical History Relation Name Comments Hypertension Father Relation Name Status Comments Father Social History Tobacco Use Types Packs/Day Years Used Date Smoking Tobacco: Former Cigarettes Passive Smoke Exposure: Past Smokeless Tobacco: Never Tobacco Cessation:Counseling Given: No Comments:Vape Alcohol Use Standard Drinks/Week Comments Yes 1 (1 standard drink = 0.6 oz pur e alcohol) Once a week. Comments No Sex and Gender Information Value Date Recorded Sex Assigned at Female 07/23/2024 5:37 PM EXECUTIVE CHEF Legal Sex Female 7:10 AM EXECUTIVE CHEF Gender Identity Female 07/23/2024 5:37 PM EXECUTIVE CHEF Sexual Orientation Not on file Last Filed Vital Signs Vital Sign Reading Time Taken Comments Blood Pressure 128/60 01/25/2025 1:39 PM CDT Pulse 104 01/25/2025 1:39 PM CDT Temperature 37.2 C (98.9 F) 01/25/2025 1:39 PM CDT Respiratory Rate 18 12/25/2024 11:04 AM CDT Oxygen Saturation 95% 01/25/2025 1:39 PM CDT Inhaled Oxygen Concentration - - Weight 81.6 kg (180 lb) 01/25/2025 1:39 PM CDT Height 165.1 cm (5' 5 ) 01/25/2025 1:39 PM CDT s tated Body Mass Index 29.95 01/25/2025 1:39 PM CDT Plan of Treatment Upcoming Encounters Date Type Department Care Team (Late st Contact Info) Description 03/27/2025 8:20 AM CDT Office Visit [facility] [address] [place] [address] Pedro Aparicio, [facility] [address] [place] [address] Health Maintenance Due Date Last Done Comments HPV VACCINES (1 - 3-dose series) 1999 DTAP/TDAP/TD VACCINES (1 - Tdap) 2003 HEPATITIS B VACCINES (1 of 3 - 19+ 3-dose series) 09/2002 Preventative Visit-Managed Medicaid 2003 HPV/Cotest (21-29) 2005 CERVICAL CANCER SCREENING 2014 HPV/Cotest (30-65) 2014 PAP SMEAR 2014 BREAST CANCER SCREENING 2024 INFLUENZA VACCINE (#1) 2025 07/25/2024 Pre-Diabetes and Diabetes Screening 07/25/202707/25 Medical Devices Explanted Type Area System Trainer Device Identifier Shelf Expiration Date Model / Serial / Lot Stent Contour [id number] - [id number] Implanted:Qty: 1 on 09/03/2023 by Abraham Cerna DO at [facility] Explanted:Qty: 1 on 03/13/2024 by Danny Anderson MD at [facility] Stent Right: Ureter [employer]- UROLOGY/HUMAN RESOURCE ASSISTANT [id number] 04/20/2026 [id number] 20 / / [id number] Description:was already boo sarah previously Stent Contour [id number] - [id number] Implanted:Qty: 1 on 02/15/2024 by Danny Anderson MD at [facility] Explanted:Qty: 1 on 03/13/2024 by Danny Anderson MD at [facility] Stent Right: Ureter [employer]OLOG[employer]/HUMAN RESOURCE ASSISTANT [id number] 06/20/2026 [id number] 30 / / [id number] Description:No Strings Procedures Procedure Name Priority Date/Time Associated Diagnosis Comments URINE CULTURE Routine 01/25/2025 2:13 PM CDT Flank pain POC URINALYSIS DIPSTICK AUTOMATED Routine 01/25/2025 1:20 PM CDT Flank pain HEMOGLOBIN A1C Routine 07/25/2024 8:35 AM EXECUTIVE CHEF Syncope, unspecified syncope type from Last 3 Months or Most Recently Relevant to Health Maintenance Results * URINE CULTURE (01/25/2025 2:13 PM CDT) URINE CULTURE SEE NOTE [facility] Comment: CULTURE, URINE, ROUTINE Micro Number: [id number] Test Status: Final Specimen Source: Urine, clean catch Specimen Quality: Adequate Result: Mixed genital sky isolated. These superficial bacteria are not indicative of a urinary tract infection. No further organism identification is warranted on this specimen. If clinically indicated, recollect clean-catch, mid-stream urine and transfer immediately to Urine Culture Transport Tube. Test Performed at: [facility] [address] [place] [address] Burton Stockton MD Urine URINE SPECIMEN OBTAINED BY CLEAN CATCH PROCEDURE / Unknown 01/25/2025 2:13 PM CDT 01/26/2025 1:15 AM CDT October PROTEOMICS SCIENTIST MICROBIOLOGY - GENERAL ORDERABLE S Final Result Performing Organization Address City/[facility]/ZIP Co de Phone Number [facility] [phone] [facility] [address] [place] [address] * (ABNORMAL) POC URINALYSIS DIPSTICK AUTOMATED (01/25/2025 1:20 PM CDT) COLOR UA POC Yellow Pale to Dark Yellow [facility] CLARITY UA POC Clear Clear, Other [facility] GLUCOSE UA POC Negative Negative, Normal [facility] BILIRUBIN UA POC Negative Negative [facility] UA POC Negative Negative [facility] SPECIFIC GRAVITY UA POC >=1.030 1.000 - 1.030 [facility] BLOOD UA POC 1+(A) Negative [facility] PH UA POC 5.5 5.0 - 8.0 [facility] PROTEIN UA POC Negative Negative [facility] UROBILINOGEN UA POC 0.2 <2.0 mg/dL [facility] NITRITE UA POC Negative Negative [facility] LEUKOCYTE ESTERASE UA POC Trace(A) Negative [facility] KIT LOT NUMBER POC [id number] [facility] KIT EXP DATE POC 12/31/2025 [facility] Urine 01/25/2025 1:20 PM CDT October PROTEOMICS SCIENTIST POINT OF CARE TESTING Final Resu lt Performing Organization Address City/[facility]/ZIP Co de Phone Number [facility] CLIA# [id number] [facility] [place] [address] * HEMOGLOBIN A1C (07/25/2024 8:35 AM EXECUTIVE CHEF) HEMOGLOBIN A1C 5.0 <5.7 % of total Hgb [facility] Comment: For the purpose of screening for the presence of diabetes: <5.7% Consistent with the absence of diabetes 5.7-6.4% Consistent with increased risk for diabetes (prediabetes) > or =6.5% Consistent with diabetes This assay result is consistent with a decreased risk of diabetes. Currently, no consensus exists regarding use of hemoglobin A1c for diagnosis of diabetes in children. According to [place] Diabetes Association (ADA) guidelines, hemoglobin A1c <7.0% represents optimal control in non- diabetic patients. Different metrics may apply to specific patient populations. Standards of Medical Care in Diabetes(ADA). ESTIMATED AVERAGE GLUCOSE (MG/DL) 97 mg/dL [facility] ESTIMATED AVERAGE GLUCOSE (MMOL/L) 5.4 mmol/L [facility] Comment: FASTING:YES FASTING: YES Test Performed at: [facility] [address] [id number] Burton Stockton MD Blood 07/25/2024 8:35 AM EXECUTIVE CHEF 07/25/2024 8:36 AM EXECUTIVE CHEF Pedro Aparicio PROTEOMICS SCIENTIST CHEMISTRY ORDERABLES Final Result [facility] [phone] [facility] [address] [id number] from Last 3 Months or Most Recently Relevant to Health Maintenance Insurance [facility] MEDICAID Advance Directives For more information, please contact: [phone] * Full Code (Latest Code Status on File) Date Activated Date Inactivated Comments 03/13/2024 2:11 AM 03/14/2024 4:14 PM * Full Code Date Activated Date Inactivated Comments 02/14/2024 1:11 AM 02/16/2024 8:01 PM * Full Code Date Activated Date Inactivated Comments 09/02/2023 3:58 PM 09/04/2023 12:56 PM Care Teams Hand Surgeon Relationship Specialty Start Date End Date Francoise Maloney DO [address] [place] [id number] PCP - General Family Practice 09/19/24
--- OUTSIDE RECORDS SUMMARY | 2025-02-04 01:35 | XMS_ITS | Encounter Summary ---
Author Organization [facility] Address [address] [place] [address] Care Team Providers Care Power Plant Installer Name Role Phone Francoise Maloney DO Primary Care Provider [phone] Encounter Details Date Type Department Care Team ([facility] Contact Info) Description 01/28/2025 Results Follow-Up [facility] [address] [place] [address] BonnerOctober, [facility] [address] [place] [address] POC URINALYSIS DIPSTICK AUTOMATED, URINE CULTURE Social History Tobacco Use Types Packs/Day Years Used Date Smoking Tobacco: Former Cigarettes Passive Smoke Exposure: Past Smokeless Tobacco: Never Comments:Vape Alcohol Use Standard Drinks/Week Comments Yes 1 (1 standard drink = 0.6 oz pur e alcohol) Once a week. Comments No Sex and Gender Information Value Date Recorded Sex Assigned at Female 07/23/2024 5:37 PM FLORAL DEPARTMENT SPECIALIST Legal Sex Female 7:10 AM FLORAL DEPARTMENT SPECIALIST Gender Identity Female 07/23/2024 5:37 PM FLORAL DEPARTMENT SPECIALIST Sexual Orientation Not on file documented as of this encounter Plan of Treatment Upcoming Encounters Date Type Department Care Team ([facility] Contact Info) Description 03/27/2025 8:20 AM CDT Office Visit [facility] [address] [place] [address] Pedro Aparicio, BUSINESS PROCESS REPRESENTATIVE [address] [place] [address] documented as of this encounter Visit Diagnoses Not on filedocumented in this encounter Care Teams Power Plant Installer Relationship Specialty Start Date End Date Francoise Maloney DO [address] [place] [address] PCP - General Family Practice 09/19/24 documented as of this encounter
--- OUTSIDE RECORDS SUMMARY | 2025-02-04 01:35 | XMS_ITS | Encounter Summary ---
Author Organization [facility] Address [address] [place] [address] Care Team Providers Care Oil Filters Inspector Name Role Phone Francoise Maloney DO Primary Care Provider [phone] Encounter Details Date Type Department Care Team ([facility] Contact Info) Description 01/29/2025 External Device Data STL ABSTRACTION Provider, Abstract NO ADDRESS ON FILE Social History Tobacco Use Types Packs/Day Years Used Date Smoking Tobacco: Former Cigarettes Passive Smoke Exposure: Past Smokeless Tobacco: Never Comments:Vape Alcohol Use Standard Drinks/Week Comments Yes 1 (1 standard drink = 0.6 oz pur e alcohol) Once a week. Comments No Sex and Gender Information Value Date Recorded Sex Assigned at Female 07/23/2024 5:37 PM CHICKEN BONER Legal Sex Female 7:10 AM CHICKEN BONER Gender Identity Female 07/23/2024 5:37 PM CHICKEN BONER Sexual Orientation Not on file documented as of this encounter Plan of Treatment Upcoming Encounters Date Type Department Care Team ([facility] Contact Info) Description 03/27/2025 8:20 AM CDT Office Visit [facility] [address] [place] [address] Pedro Aparicio FNP [address] [place] [address] documented as of this encounter Visit Diagnoses Not on filedocumented in this encounter Care Teams Oil Filters Inspector Relationship Specialty Start Date End Date Francoise Maloney DO [address] [place] [address] PCP - General Family Practice 09/19/24 documented as of this encounter
[2025-02-04 01:37] LABS: Hematocrit 45.5 % (36-47); Hemoglobin 15.40 g/dL (11.27-16.99); Mean Corpuscular HGB Conc 33.8 g/dL (30-55); Mean Corpuscular Hemoglobin 31.2 pg (27-33); Mean Corpuscular Volume 92.1 fl (85-98); Nucleated Red Blood Cells % 0 %; Platelet Count 277 10^3/cmm (157-399); Red Blood Count 4.94 10^6/uL (3.85-5.65); White Blood Count 17.25 10^3/uL (3.29-11.43)
--- NOTE | 2025-02-04 01:37 | CTR_ITS ---
PROCEDURE INFORMATION: Exam: CT Abdomen And Pelvis Without Contrast Exam date and time: 02/04/2025 2:10 AM Age: 39 years old Clinical indication: Nausea and vomiting; Abdominal pain; Right; Prior surgery; Surgery date: 6+ months; Surgery type: Iud; C/O RT flank pain with n/v. History of ureteral stent placement. TECHNIQUE: Imaging protocol: Computed tomography of the abdomen and pelvis without contrast. Sagittal and coronal reformatted images were also reviewed. Sagittal and coronal reformatted images were also reviewed. Radiation optimization: All CT scans at this facility use at least one of these dose optimization techniques: automated exposure control; mA and/or kV adjustment per patient size (includes targeted exams where dose is matched to clinical indication); or iterative reconstruction. COMPARISON: CT kidney stone [id number] 05/25/2024 10:35 PM RADIATION DOSE METRICS: Total DLP (mGy-cm): 678.61 FINDINGS: Limitations: Evaluation of solid organs and vasculature is limited without intravenous contrast. This is standard protocol for evaluation of possible urolithiasis. Liver: The liver is unremarkable. Gallbladder and biliary ducts: The gallbladder is unremarkable. No biliary ductal dilatation. Pancreas: The pancreas is unremarkable. No pancreatic ductal dilatation. Spleen: The spleen is unremarkable. Adrenal glands: The right and left adrenal glands are unremarkable. Kidneys and ureters: Mild scarring in the lower pole of the right kidney. Stable non-obstructing stone in the left kidney measuring 3.8 mm (series 3, image 69). The right and left ureters are unremarkable. Stomach and bowel: Fluid within the small bowel and colon without evidence of bowel wall thickening. Appendix: The appendix is visualized and is unremarkable. No findings to suggest acute appendicitis. Intraperitoneal space: No free intraperitoneal air. No ascites. No loculated fluid collections to suggest an abscess. Vasculature: No evidence for aortic aneurysm. Lymph nodes: No lymphadenopathy. Urinary bladder: The bladder is unremarkable. Reproductive: There is an IUD in the endometrium of the uterus. The uterus is otherwise unremarkable. The right and left ovaries are unremarkable. Bones/joints: No acute fracture. Soft tissues: No acute abnormality in the extra-abdominal soft tissues. CT/CT kidney stone [id number] IMPRESSION: 1. Fluid within the small bowel and colon without evidence of bowel wall thickening. This may reflect viral gastroenteritis in the appropriate clinical situation. 2. Stable nonobstructing left renal stone. 3. Incidental/nonacute findings are listed in the report.
[2025-02-04] MEDS: ondansetron 2 mg/ML SDV 2 mL 4 MG IVP (01:54)
[2025-02-04 01:55] LABS: Alanine Aminotransferase 9 U/L (0-33); Albumin Level 4.2 g/dL (3.5-5.2); Alkaline Phosphatase 60 U/L (35-105); Anion Gap 18.1 (5-19); Aspartate Amino Transferase 15 U/L (0-32); Blood Urea Nitrogen 11 mg/dL (6-20); Calcium 9.4 mg/dL (8.5-10.5); Carbon Dioxide 17 mmol/L (22-29); Chloride 110 mmol/L (98-107); Creatinine Clr Calc Pharmacy 111.2279; Globulin 3.6 g/dL (1.3-4.6); Glucose 134 mg/dL (65-115); Lipase 18 U/L (13-60); Osmolality Calculated 295 mOsm/kg (285-295); Potassium 3.1 mmol/L (3.5-5.1); Sodium 142 mmol/L (136-145); Total Protein 7.8 g/dL (6.6-8.7)
[2025-02-04 02:02] LABS: HCG, Serum Qual Negative (Negative)
[2025-02-04 02:57] VITALS: RESP 17; O2SAT 98
[2025-02-04] MEDS: morphine 4 mg/mL SDV 1 mL IVP (02:57)
[2025-02-04 03:01] VITALS: BP 117/71; PULSE 98; RESP 17; O2SAT 97
[2025-02-04 03:19] LABS: Glucose Urine UA Negative (Normal); Nitrate Urine Negative (Negative); Specific Gravity, Urine 1.030 (1.005-1.030)
[2025-02-04 03:24] LABS: Add Urine Microscopic? YES
[2025-02-04 04:05] VITALS: BP 119/65; PULSE 86; RESP 19; O2SAT 97
== END 2025-02-04 04:22 | disposition home or self-care (01) ==
PROVIDERS: Emergency Provider Family Medicine
DX: K52.9 Noninfective gastroenteritis and colitis, unspecified (principal); F17.290 Nicotine dependence, other tobacco product, uncomplicated
CPT/HCPCS: 74176; 80053; 81001; 83690; 84703; 85025; 96361; 96374; 96375; 99285; J1885; J2270; J2405; J7030

== ENCOUNTER → 2025-06-17 15:32 | Outpatient (BNVA) | payer MEDICAID, SELFPAY | PROVIDERS: Referring Provider Nurse Practitioner Family; Visit Provider Obstetrics & Gynecology | DX: Z12.4 Encounter for screening for malignant neoplasm of cervix (principal) | CPT/HCPCS: 87624 ==